=== PATIENT | male | born 1955 | race Caucasian/White ===

== ENCOUNTER → 2017-12-19 12:30 | Outpatient (CLI) | payer OTHER, SELFPAY ==
--- NOTE | 2017-12-19 12:37 | RAD_ITS ---
STUDY: X-RAY - LEFT KNEE REASON FOR EXAM: Male, 62 years old. Worsening right knee pain. TECHNIQUE: 4 view(s) of the knee. COMPARISON: None. FINDINGS: Normal visualized distal femur. Normal visualized proximal tibia and fibula. Normal proximal tibiofibular articulation. There is moderate medial compartmental arthrosis, mild lateral compartmental arthrosis and slight lateral tilt and subluxation of the patella with mild arthrosis of the patellofemoral compartment. There is a superior patellar spur. The soft tissue structures are unremarkable. RAD/Knee 4 or More Views IMPRESSION: Tricompartmental osteoarthritic changes as described. Electronically Signed: Mark Rainey MD at 17:35 EST , Service support ,
== END ==
PROVIDERS: Family Provider Family Medicine; PCP Family Medicine; Visit Provider Family Medicine
DX: M25.562 Pain in left knee (principal)
CPT/HCPCS: 73564

== ENCOUNTER → 2017-12-22 08:10 | Outpatient (CLI) | payer OTHER, SELFPAY ==
[2017-12-22 13:02] LABS: Absolute Lymphocyte Count 2.09 X10^3/ul (0.83-4.51); Absolute Neutrophil Count 5.5 X10^3/uL (2.0-7.7); Basophil# 0.02 X10^3/uL; Basophil% 0.2 % (0-1); Eosinophil# 0.22 X10^3/uL; Eosinophils% 2.6 % (0-5); Hematocrit 41.8 % (40-54); Hemoglobin 13.7 g/dl (13.0-16.5); Lymphocyte # 2.09 X10^3/ul (4.0); Lymphocyte % 24.3 % (19-41); Mean Corp Hgb Conc 32.8 g/gl (32-36); Mean Corpuscular Volume 94.6 fL (80-94); Mean Platelet Vol. 11.3 fl (6.2-12.0); Monocyte# 0.72 X10^3/uL; Monocyte% 8.4 % (0-10); Neutrophil # 5.53 X10^3/uL (2.7-7.7); Neutrophil % 64.2 % (47-70); Platelet Count 192 K/mm3 (150-450); RBC Distribution Width CV 13.5 % (11.6-14.6); RBC Distribution Width SD 44.7 fl (35.1-43.9); Red Blood Count 4.42 M/mm3 (4.6-6.2); White Blood Count 8.6 K/mm3 (4.4-11.0)
[2017-12-22 13:04] LABS: POSITIVE COUNT NO; POSITIVE DIFFERENTIAL NO; POSITIVE MORPHOLOGY NO
[2017-12-22 13:11] LABS: Anion Gap 7 (5-15); BUN 12 mg/dL (7-18); BUN/Creat Ratio 13.5 RATIO (10-20); Calcium,Total 8.5 mg/dL (8.5-10.1); Chloride 105 mmol/L (98-107); Cholesterol 138 mg/dL (200); Creatinine, Serum 0.89 mg/dL (0.70-1.30); EST Glomerular Filtration Rate 92 mL/min (>60); Est Glom Filt Rate - Afr Amer 111 mL/min (>60); Glucose 103 mg/dL (74-106); High Density Lipoprotein 40 mg/dL; Potassium 4.3 mmol/L (3.5-5.1); Sodium Level 139 mmol/L (136-145); T4 Free Direct 0.77 ng/dL (0.76-1.46); Thyroid Stim Hormone (TSH) 2.54 uIU/mL (0.358-3.74); Triglycerides 149 mg/dL; Very Low Density Lipoprotein 30 mg/dL (5-40)
[2017-12-22 13:13] LABS: Hemoglobin A1c 6.3 % (4.2-6.3)
== END ==
PROVIDERS: Family Provider Family Medicine; PCP Family Medicine; Visit Provider Family Medicine
DX: I10 Essential (primary) hypertension (principal); R73.01 Impaired fasting glucose
CPT/HCPCS: 36415; 80048; 80061; 83036; 84439; 84443; 85025

== ENCOUNTER → 2018-12-28 08:43 | Outpatient (CLI) | payer MEDICARE, OTHER, SELFPAY ==
[2018-12-28 12:37] LABS: Absolute Lymphocyte Count 2.06 X10^3/ul (0.83-4.51); Absolute Neutrophil Count 4.7 X10^3/uL (2.0-7.7); Basophil# 0.02 X10^3/uL; Basophil% 0.3 % (0-1); Eosinophil# 0.18 X10^3/uL; Eosinophils% 2.3 % (0-5); Hematocrit 43.3 % (40-54); Hemoglobin 13.9 g/dl (13.0-16.5); Lymphocyte # 2.06 X10^3/ul (4.0); Lymphocyte % 26.7 % (19-41); Mean Corp Hgb Conc 32.1 g/gl (32-36); Mean Corpuscular Hgb 30.5 pg (27.0-32.0); Mean Platelet Vol. 11.2 fl (6.2-12.0); Monocyte# 0.71 X10^3/uL; Monocyte% 9.2 % (0-10); Neutrophil # 4.74 X10^3/uL (2.7-7.7); Neutrophil % 61.4 % (47-70); Platelet Count 185 K/mm3 (150-450); RBC Distribution Width SD 50.8 fl (35.1-43.9); Red Blood Count 4.56 M/mm3 (4.6-6.2); White Blood Count 7.7 K/mm3 (4.4-11.0)
[2018-12-28 12:42] LABS: POSITIVE COUNT NO; POSITIVE DIFFERENTIAL NO; POSITIVE MORPHOLOGY NO
[2018-12-28 13:03] LABS: Anion Gap 6 (5-15); BUN 16 mg/dL (7-18); BUN/Creat Ratio 18.8 RATIO (10-20); Calcium,Total 8.1 mg/dL (8.5-10.1); Chloride 111 mmol/L (98-107); Creatinine, Serum 0.85 mg/dL (0.70-1.30); EST Glomerular Filtration Rate 96 mL/min (>60); Est Glom Filt Rate - Afr Amer 116 mL/min (>60); Glucose 105 mg/dL (74-106); Potassium 4.1 mmol/L (3.5-5.1); Sodium Level 142 mmol/L (136-145); Thyroid Stim Hormone (TSH) 2.43 uIU/mL (0.358-3.74)
== END ==
PROVIDERS: Family Provider Family Medicine; PCP Family Medicine; Visit Provider Family Medicine
DX: I10 Essential (primary) hypertension (principal); R73.01 Impaired fasting glucose
CPT/HCPCS: 36415; 80048; 84443; 85025

== ENCOUNTER → 2019-12-30 08:38 | Outpatient (CLI) | payer MEDICARE, OTHER, SELFPAY ==
[2019-12-30 12:46] LABS: Absolute Neutrophil Count 4.5 X10^3/uL (2.0-7.7); Basophil# 0.02 X10^3/uL; Basophil% 0.3 % (0-1); Eosinophils% 2.9 % (0-5); Hematocrit 44.9 % (40-54); Hemoglobin 14.3 g/dL (13.0-16.5); Lymphocyte % 24.4 % (19-41); Mean Corp Hgb Conc 31.8 g/dL (32-36); Mean Corpuscular Hgb 30.2 pg (27.0-32.0); Mean Corpuscular Volume 94.9 fL (80-94); Mean Platelet Vol. 11.5 fl (6.2-12.0); Monocyte# 0.48 X10^3/uL; Monocyte% 6.9 % (0-10); NRBC Flagged by Analyzer 0 % (0-5); Neutrophil # 4.54 X10^3/uL (2.7-7.7); Neutrophil % 65.2 % (47-70); Platelet Count 162 K/mm3 (150-450); RBC Distribution Width CV 13.5 % (11.6-14.6); RBC Distribution Width SD 47.3 fl (35.1-43.9); Red Blood Count 4.73 M/mm3 (4.6-6.2)
[2019-12-30 12:51] LABS: Vitamin D,25 Hydroxy 32.7 ng/mL
[2019-12-30 13:01] LABS: ALB/GLOB Ratio 0.9 RATIO (0.9-2.4); AST(SGOT) 24 U/L (15-37); Alanine Aminotransfer ALT/SGPT 28 U/L (16-61); Albumin, Serum 3.3 g/dL (3.2-5.0); Alkaline Phosphatase 146 U/L (45-117); Anion Gap 4 (5-15); BUN 13 mg/dL (7-18); Calcium,Total 8.8 mg/dL (8.5-10.1); Chloride 109 mmol/L (98-107); Creatinine, Serum 0.87 mg/dL (0.70-1.30); EST Glomerular Filtration Rate 94 mL/min (>60); Est Glom Filt Rate - Afr Amer 113 mL/min (>60); Globulin 3.6 g/dL (2.2-4.2); Glucose 112 mg/dL (74-106); Potassium 4.4 mmol/L (3.5-5.1); Protein, Total 6.9 g/dL (6.4-8.2); Sodium Level 141 mmol/L (136-145)
== END ==
PROVIDERS: PCP Family Medicine; Visit Provider Family Medicine
DX: K90.0 Celiac disease (principal); I10 Essential (primary) hypertension
CPT/HCPCS: 36415; 80053; 82306; 85025

== ENCOUNTER → 2023-03-22 | Outpatient (CLI) | payer BC, MEDICARE, SELFPAY ==
[2023-03-22 13:09] LABS: Absolute Lymphocyte Count 1.59 X10^3/uL (0.83-4.51); Absolute Neutrophil Count 4.8 X10^3/uL (2.0-7.7); Basophil# 0.04 X10^3/uL; Basophil% 0.6 % (0-1); Eosinophil# 0.21 X10^3/uL; Eosinophils% 2.9 % (0-5); Hematocrit 44.1 % (40-54); Lymphocyte # 1.59 X10^3/ul (0.83-4.51); Mean Corp Hgb Conc 31.7 g/dL (32-36); Mean Corpuscular Hgb 31.3 pg (27.0-32.0); Mean Corpuscular Volume 98.4 fL (80-94); Mean Platelet Vol. 12.7 fl (6.2-12.0); Monocyte% 8.3 % (0-10); NRBC Flagged by Analyzer 0 % (0-5); Neutrophil # 4.78 X10^3/uL (2.7-7.7); Neutrophil % 65.9 % (47-70); Platelet Count 139 K/mm3 (150-450); RBC Distribution Width CV 14.1 % (11.6-14.6); RBC Distribution Width SD 51.3 fl (35.1-43.9); Red Blood Count 4.48 M/mm3 (4.6-6.2); White Blood Count 7.2 K/mm3 (4.4-11.0)
[2023-03-22 14:23] LABS: ALB/GLOB Ratio 0.8 RATIO (0.9-2.4); AST(SGOT) 23 U/L (15-37); Alanine Aminotransfer ALT/SGPT 25 U/L (16-61); Albumin, Serum 3.2 g/dL (3.2-5.0); Alkaline Phosphatase 128 U/L (45-117); Anion Gap 5 (5-15); BUN 13 mg/dL (7-18); BUN/Creat Ratio 14.3 RATIO (10-20); Calcium,Total 8.8 mg/dL (8.5-10.1); Chloride 110 mmol/L (98-107); Cholesterol 129 mg/dL (200); Creatinine, Serum 0.91 mg/dL (0.70-1.30); EST Glomerular Filtration Rate 88 mL/min (>60); Est Glom Filt Rate - Afr Amer 106 mL/min (>60); GGTP 29 U/L (15-85); Globulin 4.1 g/dL (2.2-4.2); Glucose 122 mg/dL (74-106); High Density Lipoprotein 42 mg/dL; Potassium 4.2 mmol/L (3.5-5.1); Protein, Total 7.3 g/dL (6.4-8.2); Sodium Level 140 mmol/L (136-145); T4 Free Direct 0.91 ng/dL (0.76-1.46); Triglycerides 107 mg/dL; Very Low Density Lipoprotein 21 mg/dL (5-40)
[2023-03-22 14:26] LABS: Vitamin B12 437 pg/mL (211-911)
[2023-03-23 09:30] LABS: Hemoglobin A1c 5.7 % (3.8-5.6)
== END | disposition home or self-care (01) ==
LOC: MFPLAB 09:50
PROVIDERS: PCP Family Medicine; Visit Provider Family Medicine
DX: R73.09 Other abnormal glucose (principal); I10 Essential (primary) hypertension; F17.210 Nicotine dependence, cigarettes, uncomplicated; R74.8 Abnormal levels of other serum enzymes; R53.83 Other fatigue
CPT/HCPCS: 36415; 80053; 80061; 82607; 82977; 83036; 84439; 84443; 85025

== ENCOUNTER → 2023-06-06 | Outpatient (CLI) | payer MEDICARE, SELFPAY ==
[2023-06-06 15:29] LABS: Bacteria 0 SEEN /hpf (None Seen); Mucous, Urine 0 SEEN /hpf (<or=2+); Red Blood Cells-Urine 0 SEEN /hpf (0-5)
[2023-06-06 18:24] LABS: Color, Urine Yellow (Yellow); Glucose, Dipstick Normal (Normal); Ketone-Dipstick Negative (Negative); Leukocyte Esterase-Dipstick 25 /ul (Negative); Nitrite-Dipstick Negative (Negative); Occult Blood-Urine Negative /ul (Negative); Protein-Dipstick Negative (Negative); Specific Gravity, Urine 1.015 (1.002-1.030); Urine Bilirubin Dipstick Negative (Negative); Urine Clarity Clear (Clear); Urine Urobilinogen Normal (Normal)
[2023-06-06 18:35] LABS: Absolute Lymphocyte Count 2.38 X10^3/uL (0.83-4.51); Absolute Neutrophil Count 5.3 X10^3/uL (2.0-7.7); Basophil# 0.02 X10^3/uL; Basophil% 0.2 % (0-1); Eosinophil# 0.24 X10^3/uL; Eosinophils% 2.8 % (0-5); Hematocrit 45.4 % (40-54); Hemoglobin 14.9 g/dL (13.0-16.5); Lymphocyte # 2.38 X10^3/ul (0.83-4.51); Lymphocyte % 27.5 % (19-41); Mean Corp Hgb Conc 32.8 g/dL (32-36); Mean Corpuscular Hgb 31.3 pg (27.0-32.0); Mean Corpuscular Volume 95.4 fL (80-94); Mean Platelet Vol. 13.7 fl (6.2-12.0); Monocyte# 0.64 X10^3/uL; Monocyte% 7.4 % (0-10); NRBC Flagged by Analyzer 0 % (0-5); Neutrophil # 5.34 X10^3/uL (2.7-7.7); Neutrophil % 61.6 % (47-70); POSITIVE COUNT YES; Platelet Count 140 K/mm3 (150-450); RBC Distribution Width CV 13.6 % (11.6-14.6); RBC Distribution Width SD 48.5 fl (35.1-43.9); Red Blood Count 4.76 M/mm3 (4.6-6.2); White Blood Count 8.7 K/mm3 (4.4-11.0)
[2023-06-06 18:45] LABS: ALB/GLOB Ratio 0.8 RATIO (0.9-2.4); AST(SGOT) 27 U/L (15-37); Alanine Aminotransfer ALT/SGPT 29 U/L (16-61); Albumin, Serum 3.5 g/dL (3.2-5.0); Alkaline Phosphatase 145 U/L (45-117); Anion Gap 6 (5-15); BUN 13 mg/dL (7-18); BUN/Creat Ratio 13.2 RATIO (10-20); Chloride 105 mmol/L (98-107); Cholesterol 155 mg/dL (200); Creatinine, Serum 0.99 mg/dL (0.70-1.30); EST Glomerular Filtration Rate 80 mL/min (>60); Est Glom Filt Rate - Afr Amer 96 mL/min (>60); GGTP 31 U/L (15-85); Globulin 4.4 g/dL (2.2-4.2); Glucose 114 mg/dL (74-106); High Density Lipoprotein 45 mg/dL; Potassium 4.2 mmol/L (3.5-5.1); Protein, Total 7.9 g/dL (6.4-8.2); Sodium Level 137 mmol/L (136-145); Thyroid Stim Hormone (TSH) 2.13 uIU/mL (0.358-3.74); Triglycerides 162 mg/dL; Very Low Density Lipoprotein 32 mg/dL (5-40)
[2023-06-06 18:51] LABS: Hemoglobin A1c 5.5 % (3.8-5.6)
[2023-06-06 19:01] LABS: Squamous Epithelial Cells - UA 0-5 SEEN /hpf (0-5); White Blood Cells 0-5 SEEN /hpf (0-5)
== END | disposition home or self-care (01) ==
LOC: MTLAB 15:05
PROVIDERS: PCP Family Medicine; Referring Provider Family Medicine; Visit Provider Family Medicine
DX: I10 Essential (primary) hypertension (principal); R74.8 Abnormal levels of other serum enzymes; R73.02 Impaired glucose tolerance (oral)
CPT/HCPCS: 36415; 80053; 80061; 81001; 82977; 83036; 84443; 85025

== ENCOUNTER 2023-10-13 06:32 | Observation (INO) | payer MEDICARE, SELFPAY ==
[2023-10-13] VITALS (20 sets, daily range): BP systolic 94–167; BP diastolic 53–83; PULSE 55–96; RESP 14–20; TEMP 36.1–36.6; O2SAT 89–95; BMI 35.1
--- OUTSIDE RECORDS SUMMARY | 2023-10-13 06:47 | XMS RPT_ITS | CCD ---
Author Name Unknown Address [address] [place] [address] Organization [facility] Care Team Providers Care Pharmacy Scheduler Name Role Phone ZAC BLANCO Unavailable Unavailable ZAC BLANCO Unavailable Unavailable ZAC BLANCO Unavailable Unavailable Bacilio FOREMAN, Fely Jacobsen Primary Care Provider [phone] JUAN CARLOS CALVILLO Referring Unavail FELY Villa Primary Care Unavailable FELY SOL Primary Care Unavailable FELY SOL Primary Care Unavailable FELY SOL Primary Care Unavailable JUAN CARLOS CALVILLO Referring Unavail FELY Villa Primary Care Unavailable FELY SOL Primary Care Unavailable Allergies Allergy Classification Reported Allergen(s) Allergy Type Date of Onset Reaction(s) Facility (3 sources) Seasonal allergy; Translations: [SEASONAL ALLERGIES] Propensity to adverse reactions (disorder) 3 Intolerance [facility] Other [facility] Medications Current Medications Medication Drug Class(es) Dates Sig (Normalized) Sig (Original) polymyxin b 02820 unt/ml / trimethoprim 1 mg/ml ophthalmic solution (1 source) Dihydrofolate Reductase Inhibitor Antibacterial, Polymyxin-class Antibacterial Start: 04-27-2022 End: 05-04-2022 take 1 drop(s) into the eye(s) every four hours trimethoprim-malinda ymyxin (POLYTRIM) 10,000 unit- 1 mg/mL ophthalmic solution Use 1 Drop in the right eye every 4 hours for 7 days. 10 mL 0 04/27/2022 05/04/2022 Active Completed/Discontinued Medications Medication Drug Class(es) Dates Sig (Normalized) Sig (Original) cetirizine hydrochloride 10 mg oral capsule (1 source) Histamine-1 Receptor Antagonist Cetirizine (ZYRTEC) 10 mg cap Take by mouth. 0 Active Problems Active Problems Problem Classification Problem Date Documented Da te Episodic/Chronic Diverticulosis and diverticulitis (1 source) Diverticulosis of colon; Translations: [Diverticulosis of large intestine without perforation or abscess without bleeding] Onset: 04-28-2010 04-28-2010 Chronic Essential hypertension (1 source) Hypertensive disorder; Translations: [Essential (primary) hypertension] Onset: 12-30-2009 12-30-2009 Chronic Other aftercare (3 sources) Other terminal operations manager (current) drug therapy; Translations: [Other fci (current) drug therapy] Onset: 04-27-2023 Episodic Other eye disorders (1 source) Pain in eye; Translations: [Ocular pain, right eye] Episodic Other gastrointestinal disorders (1 source) Dysphagia, unspecified; Translations: [Dysphagia, unspecified] Onset: 01-24-2018 Episodic Other inflammatory condition of skin (1 source) Dermatitis herpetiformis; Translations: [Dermatitis herpetiformis] Onset: 04-27-2023 Chronic Other nutritional; endocrine; and metabolic disorders (1 source) Obesity; Translations: [Obesity, unspecified] Onset: 12-30-2009 12-30-2009 Chronic Superficial injury; contusion (1 source) Abrasion of cornea of right eye; Translations: [Injury of conjunctiva and corneal abrasion without foreign body, right eye, initial encounter] Episodic Unclassified (1 source) Unknown / UNK(Unknown) Onset: 01-24-2018 Past or Other Problems Problem Classification Problem Date Documented Da te Episodic/Chronic Allergic reactions (1 source) Solar degeneration; Translations: [Other skin changes due to chronic exposure to nonionizing radiation] Onset: 03-18-2010 03-18-2010 Episodic Melanomas of skin (1 source) H/O Malignant melanoma; Translations: [Personal history of malignant melanoma of skin] Onset: 05-16-2017 05-16-2017 Episodic Neoplasms of unspecified nature or uncertain behavior (1 source) Neoplasm of uncertain behavior of skin; Translations: [Neoplasm of uncertain behavior of skin] Onset: 03-18-2010 03-18-2010 Episodic Other and unspecified benign neoplasm (1 source) Benign neoplasm of colon; Translations: [Benign neoplasm of colon, unspecified] Onset: 04-28-2010 04-28-2010 Episodic Other non-epithelial cancer of skin (2 sources) History of malignant basal cell neoplasm of skin; Translations: [Personal history of other malignant neoplasm of skin] Onset: 12-30-2009 12-30-2009 Episodic Other screening for suspected conditions (not mental disorders or infectious disease) (1 source) Patient encounter status; Translations: [Encounter for screening for malignant neoplasm of colon] Onset: 04-28-2010 04-28-2010 Episodic Results Test Name Value Interpretation Reference Range Facil ity Vital Signs Date Time Vital Sign Value Performing Clinician Javy lofton 04-27-2022 09:04-0400 Body temperature 97.9 [degF] Erin Fernandez SMELTER LINER.PRODUCT HANDLER Work Phone: [facility] 04-27-2022 09:04-0400 Body weight 130.64 kg Erin Fernandez SMELTER LINER.PRODUCT HANDLER Work Phone: [facility] 04-27-2022 09:04-0400 Diastolic blood pressure 80 mm[Hg] Erin Fernandez SMELTER LINER.PRODUCT HANDLER Work Phone: [facility] 04-27-2022 09:04-0400 Heart rate 66 /min Erin Fernandez SMELTER LINER.PRODUCT HANDLER Work Phone: [facility] 04-27-2022 09:04-0400 Respiratory rate 18 /min Erin Fernandez SMELTER LINER.PRODUCT HANDLER Work Phone: [facility] 04-27-2022 09:04-0400 SaO2% (BldA) [Mass fraction] 95 % Erin Fernandez SMELTER LINER.PRODUCT HANDLER Work Phone: [facility] 04-27-2022 09:04-0400 Systolic blood pressure 132 mm[Hg] Erin Fernandez SMELTER LINER.PRODUCT HANDLER Work Phone: [facility] Encounters Encounter Date Encounter Type Care Provider Facility Start: 09-15-2023 End: 09-16-2023 ambulatory FELY SOL Facility:[facility] Start: 08-16-2023 End: 08-17-2023 ambulatory JUAN CARLOS CALVILLO Facility:[facility] Start: 07-26-2023 End: 07-27-2023 ambulatory FELY SOL Facility:[facility] Start: 05-17-2023 End: 05-18-2023 ambulatory JUAN CARLOS CALVILLO Facility:[facility] Start: 04-27-2023 End: 04-28-2023 ambulatory FELY SOL Facility:[facility] Start: 01-24-2023 End: 01-25-2023 ambulatory FELY SOL Facility:[facility] Start: 04-27-2022 End: 04-27-2022 Patient encounter procedure Erin Jim SMELTER LINER.PRODUCT HANDLER Work Phone: [facility] Procedures Date Procedure Procedure Detail Performing Clinician Start: 11-08-2017 Colonoscopy Erin Didier castillo SMELTER [employer]ER.PRODUCT HANDLER Work Phone: Start: 10-23-2017 Adult depression scr eening assessment Erin Fernandez SMELTER LINER.PRODUCT HANDLER Work Phone: Plan of Treatment Date Care Activity Detail Author Start: 12-23-2023 DIABETES SCREEN DIABETES SCREEN [facility] Start: 11-08-2022 Colonoscopy COLONOSCOPY [facility] Start: 11-08-2022 COLORECTAL CANCER SCREENING COLORECTAL CANCER SCREENING [facility] Start: 06-16-2022 Influenza vaccination INFLUENZA (#1) [facility] Start: 01-27-2022 LIPID SCREEN LIPID SCREEN [facility] Start: 12-14-2021 COVID-19 VACCINE (4 - Booster for Moderna series) COVID-19 VACCINE (4 - Booster for Moderna series) [facility] Start: 10-16-2021 ADVANCE DIRECTIVE DISCUSSION ADVANCE DIRECTIVE DISCUSSION [facility] Start: 10-23-2018 Adult depression scr eening assessment DEPRESSION SCREENING [facility] Start: 10-23-2018 ANNUAL PCP TEAM CENTRAL PROCESSING TECH AMIRA DISEASE VISIT ANNUAL PCP TEAM CHRONIC DISEASE VISIT [facility] Start: 12-05-2017 PROSTATE CANCER SCRE ENING DISCUSSION PROSTATE CANCER SCREENING DISCUSSION [facility] Start: 02-03-2011 Urine microalbumin profile DTAP,TDAP ,TD (1 - Tdap) [facility] Start: 2003 SHINGRIX VACCINE (1 of 2) SHINGRIX V ACCINE (1 of 2) [facility] Start: 1998 COLOGUARD (FIT-DNA) COLOGUARD (FIT-D NA) [facility] Start: [address] COLONOGRAPHY [facility] Start: 1998 FECAL OCCULT BLOOD FECAL OCCULT BLOO D [facility] Start: 1998 SIGMOIDOSCOPY SIGMOIDOSCOPY [facility] Start: 1971 BP CONTROLLED (<130/80) BP CONTROLLE D (<130/80) [facility] Start: 1959 PNEUMOCOCCAL: 65+ (1 - PCV) PNEUMOCOCCAL: 65+ (1 - PCV) [facility] Start: 1953 ABDOMINAL AORTIC ANE URYSM SCREENING ABDOMINAL AORTIC ANEURYSM SCREENING [facility] Immunizations Immunization Date Immunization Notes Care Provider Geeta ferrera 08-23-2016 influenza, injectabl e, quadrivalent, contains preservative Erin Fernandez SMELTER LINER.PRODUCT HANDLER Work Phone: [facility] 02-02-2011 tetanus and diphther ia toxoids, not adsorbed, for adult use Erin Fernandez SMELTER LINER.PRODUCT HANDLER Work Phone: [facility] 07-16-2010 influenza virus vacc ine, whole virus Erin Fernandez SMELTER LINER.PRODUCT HANDLER Work Phone: [facility] Payers Date Payer Category Payer Unknown ANTHEM BLUE [facility] AN[employer]M [employer] O [id number] 2021-Present [phone] [address] [place] [address] O [id number] 2021 Unknown [id number] Social History Date Type Detail Facility Start: 06-04-2021 Tobacco smoking stat us NCIS Smokes tobacco daily [facility] Work Phone: History of tobacco use Cigarette Smoker [facility] Work Phone: Start: 06-04-2021 Cigarettes smoked current (pack per day) - Reported 1 [facility] Start: 06-04-2021 Tobacco use and exposure Smokeless tobacco non-user [facility] Work Phone: Start: 04-27-2022 Alcohol intake Current drinke r of alcohol (finding) [facility] Start: 10-19-2011 History SDOH Alcohol Comment rare [facility] Start: 1955 Sex Assigned At Not on file [facility] Start: 04-17-2022 End: 04-27-2022 Exposure to SARS-CoV-2 (event) Not sure [facility] Work Phone: History of Present illness Narrative 04-27-2022 Erin Fernandez APRN.PRODUCT HANDLER - 04/27/2022 9:20 AM EDT Note Date & Type Note Facility 04-27-2022 History of Presen t illness Narrative Images from the original note were not included. This note was created using Revolverriter. Subjective Jasper Snell is a 66 year old male. 66 year old male with PMH HTN and obesity presents with complaints of right eye irration. Acute onset today upon awakening. +feelings of FB States that he has been scraping off paint for the past 2 days. He attempted to rinse the area out, was pulling at my eyelids which is why they are all swollen now Denies blurred vision, double vision or loss of vision Denies floaters, halos. Denies drainage Denies N/V Denies accompanying URI sx. Denies fever or chills. Wears glasses, but not corrective lens. Dr. Avila is his opthalmology, closed today. The history is provided by the patient. No language pathologist was used. Eye Problem This is a new problem. The current episode started today. The problem occurs constantly. The problem has been unchanged. Pertinent negatives include no abdominal pain, anorexia, arthralgias, change in bowel habit, chest pain, chills, congestion, coughing, diaphoresis, fatigue, fever, headaches, joint swelling, myalgias, nausea, neck pain, numbness, rash, sore throat, swollen glands, urinary symptoms, vertigo, visual change, vomiting or weakness. Nothing aggravates the symptoms. Treatments tried: flushing eye out The treatment provided no relief. PAST MEDICAL HISTORY Diagnosis Date Benign neoplasm of colon Benign neoplasm of colon Diverticulosis of colon (without mention of hemorrhage) Generalized osteoarthrosis, unspecified site Hypertension Meningitis 2011 Other malignant neoplasm of skin, site unspecified LEFT JEHOVAH'S WITNESS Personal history of colonic polyps PAST SURGICAL HISTORY Procedure Laterality Date COLONOSCOPY FLX DX W/COLLJ SPEC WHEN PFRMD 11/08/2017 Colonoscopy COLONOSCOPY W/BIOPSY SINGLE/MULTIPLE 05/04/11 COLSC FLX W/RMVL OF TUMOR POLYP LESION SNARE TQ 04/28/10 PAST SURGICAL HISTORY OF appendectomy PAST SURGICAL HISTORY OF left knee surgery ALLERGIES Seasonal Allergies MEDICATIONS Clobetasol Propionate 0.05 % lotn APPLY TO AFFECTED SKIN TRUNK ARMS TWICE A DAY 2 WEEKS THEN TWICE WEEKLY NEEDED FOR FLARE Ibuprofen 200 mg cap Take by mouth. Cetirizine (ZYRTEC) 10 mg cap Take by mouth. fluticasone (FLONASE) 50 mcg/actuation nasal spray Use 1 [place] in each nostril once daily. metoprolol tartrate, short acting, (LOPRESSOR) 50 mg tablet Take 1 tablet by mouth twice daily. dapsone 25 mg tablet trimethoprim-polymyxin (POLYTRIM) 10,000 unit- 1 mg/mL ophthalmic solution Use 1 Drop in the right eye every 4 hours for 7 days. meloxicam (MOBIC) 15 mg tablet Take 15 mg by mouth once daily. FAMILY HISTORY Problem Relation Age of Onset Thyroid Mother Arthritis Father OSTEOARTHRITIS Cancer Sister SKIN- melanoma Psychiatry Paternal Grandfather Social History Tobacco Use Smoking status: Current Every Day Smoker Packs/day: 1.00 Types: Cigarettes Smokeless tobacco: Never Used Substance Use Topics Alcohol use: Yes Comment: rare Drug use: No Review of Systems Constitutional: Negative for chills, diaphoresis, fatigue and fever. HENT: Negative for congestion, ear pain, sinus pressure, sinus pain and sore throat. Eyes: Positive for pain and redness. Negative for photophobia, discharge, itching and visual disturbance. Respiratory: Negative for apnea, cough, chest tightness and shortness of breath. Cardiovascular: Negative for chest pain and leg swelling. Gastrointestinal: Negative for abdominal pain, anorexia, change in bowel habit, nausea and vomiting. Musculoskeletal: Negative for arthralgias, joint swelling, myalgias and neck pain. Skin: Negative for rash. Allergic/Immunologic: Negative for environmental allergies, food allergies and immunocompromised state. Neurological: Negative for dizziness, vertigo, facial asymmetry, weakness, numbness and headaches. Hematological: Negative for adenopathy. Does not bruise/bleed easily. Psychiatric/Behavioral: Negative for agitation and behavioral problems. Objective BP 132/80 Pulse 66 Temp 36.6 C (97.9 F) Resp 18 Wt 130.6 kg (288 lb) SpO2 95% BMI 36.00 kg/m Physical Exam Vitals and nursing note reviewed. Constitutional: General: He is not in acute distress. Appearance: Normal appearance. He is not ill-appearing, toxic-appearing or diaphoretic. HENT: Head: Normocephalic and atraumatic. Right Ear: External ear normal. Left Ear: External ear normal. Nose: Nose normal. No congestion or rhinorrhea. Mouth/Throat: Mouth: Mucous membranes are moist. Pharynx: Oropharynx is clear. No oropharyngeal exudate or posterior oropharyngeal erythema. Eyes: General: Lids are everted, no foreign bodies appreciated. Vision grossly intact. Gaze aligned appropriately. Right eye: No foreign body, discharge or hordeolum. Left eye: No foreign body, discharge or hordeolum. Extraocular Movements: Extraocular movements intact. Right eye: Normal extraocular motion and no nystagmus. Left eye: Normal extraocular motion and no nystagmus. Conjunctiva/sclera: Right eye: Right conjunctiva is not injected. No chemosis, exudate or hemorrhage. Left eye: Left conjunctiva is injected. No chemosis, exudate or hemorrhage. Pupils: Pupils are equal, round, and reactive to light. Pupils are equal. Right eye: Pupil is round, reactive and not sluggish. Corneal abrasion and fluorescein uptake present. Pamela exam negative. Left eye: Pupil is round, reactive and not sluggish. No corneal abrasion or fluorescein uptake. Pamela exam negative. Funduscopic exam: Right eye: Red reflex present. Left eye: Red reflex present. Comments: Right upper eyelid with mild swelling noted. Cardiovascular: Rate and Rhythm: Normal rate and regular rhythm. Pulses: Normal pulses. Heart sounds: Normal heart sounds. No murmur heard. No friction rub. No gallop. Pulmonary: Effort: Pulmonary effort is normal. No respiratory distress. Breath sounds: Normal breath sounds. No stridor. No wheezing, rhonchi or rales. Chest: Chest wall: No tenderness. Abdominal: General: Abdomen is flat. There is no distension. Palpations: Abdomen is soft. There is no mass. Tenderness: There is no abdominal tenderness. There is no guarding or rebound. Hernia: No hernia is present. Musculoskeletal: General: No swelling, tenderness, deformity or signs of injury. Normal range of motion. Cervical back: Normal range of motion and neck supple. No rigidity or tenderness. Right lower leg: No edema. Left lower leg: No edema. Lymphadenopathy: Cervical: No cervical adenopathy. Skin: General: Skin is warm and dry. Capillary Refill: Capillary refill takes less than 2 seconds. Coloration: Skin is not jaundiced or pale. Findings: No bruising, lesion or rash. Neurological: General: No focal deficit present. Mental Status: He is alert and oriented to person, place, and time. Cranial Nerves: No cranial nerve deficit. Sensory: No sensory deficit. Motor: No weakness. Coordination: Coordination normal. Gait: Gait normal. Deep Tendon Reflexes: Reflexes normal. Psychiatric: Mood and Affect: Mood normal. Behavior: Behavior normal. Thought Content: Thought content normal. Assessment and Plan ASSESSMENT/PLAN: 1. Abrasion of right cornea, initial encounter - ICD9: 918.1, ICD10: S05.01XA (primary diagnosis) X 2 Noted at 12 and 05/[facility] No red flags Denies he wears contacts RX Polytrim Dr. Avila is his eye doctor, closed today He will call tomorrow for recheck in next 24 to 48 hours Discussed red flags 2. Acute right eye pain - ICD9: 379.91, ICD10: H57.11 Related to corneal abrasion RX Polytrim Erin Fernandez APRN.KASIA documented in this encounter [facility] Instructions 04-27-2022 Patient Instructions Note Date & Type Note Facility 04-27-2022 Instructions Erin Fernandez APRN.CNP - 04/27/2022 9:19 AM EDT CORNEAL ABRASION GENERAL INFORMATION: A corneal abrasion is a scratch to the clear layer that covers the front part of the eye. Small scratches usually heal within 1 or 2 days. Deeper or larger scratches may take about a week. INSTRUCTIONS: 1. Keep your eye patch on for 24-48 hours or until your follow-up visit. This will make your eye less painful and will help the abrasion heal faster. Do NOT loosen or remove the patch. If the tape comes loose, retape it just as it was before. 2. Do not drive or operate machinery while your eye is patched. Your ability to imagery intelligence distances is impaired. In some states, driving with one eye patched is against the law. 3. If you usually wear contact lenses, do not wear them until approved by your follow-up doctor. 4. You should rest your eyes. Avoid reading, watching TV, and other activities that require excessive use of your eyes. 5. If you had a foreign body in your eye removed, and you are at risk of getting another one because you still perform the activity that caused it in the first place, wear protective eyewear such as goggles or glasses. 6. If your doctor prescribed drops or ointment for your eye, use them as instructed. CONTACT YOUR DOCTOR IF: 1. Your eye pain gets worse. 2. You have problems with your eye patch. documented in this encounter [facility] History of Past illness Narrative 06-30-2010 Note Date & Type Note Facility documented as of this encounter (statuses as of 04/27/2022) [facility] Evaluation note Note Date & Type Note Facility documented in this encounter [facility] Summary Purpose Family History No Family History Records FoundNo Family History Records FoundNo Family History Records Found Advance Directives No Advanced Directives Records FoundDocuments on File Type Date Recorded Patient Adjuster And Inspector Expl anation Advance Directive(s) 11/08/2017 12:35 PM Additional Source Comments (unrecognized sect ion and content) No Status Records FoundNo Status Records FoundNo Status Records Found INFORMATION SOURCE (unrecogn ized section and content) DATE CREATED AUTHOR AUTHOR'S ORGANIZ ATION 10/19/2019 [facility] ([place]) DATE CREATED AUTHOR AUTHOR'S ORGANIZ ATION 09/18/2023 [facility] Source Comments (unrecognize d section and content) In the event this informatio n is protected by the Federal Confidentiality of Alcohol and Drug Abuse Patient Records regulations: The Federal rules restrict any use of the information to criminally investigate or prosecute any alcohol or drug abuse patient.[facility] Reason for Visit (unrecogniz ed section and content) Care Teams (unrecognized sec tion and content) FOR RECORDS PERTAINING TO PATIENTS WHO ARE OR HAVE BEEN ENROLLED IN A CHEMICAL DEPENDENCY/SUBSTANCEABUSE PROGRAM, SOME INFORMATION MAY BE OMITTED. This clinical summary was aggregated from multiple sources. Caution should be exercised in using it in the provision of clinical care. This summary normalizes information from multiple sources, and as a consequence, information in this document may materially change the coding, format and clinical context of patient data. In addition, data may be omitted in some cases. CLINICAL DECISIONS SHOULD BE BASED ON THE PRIMARY CLINICAL RECORDS. [facility] [facility]. provides no warranty or guarantee of the accuracy or completeness of information in this document.
--- NOTE | 2023-10-13 07:20 | CT_ITS ---
STUDY: CT ABDOMEN AND PELVIS WITH CONTRAST - URINARY TRACT REASON FOR EXAM: Male, 68 years old. Abdominal pain RADIATION DOSAGE (If Supplied By Facility): CTDIvol = ( 20.60 ) mGy, DLP = ( 1856.30 ) mGycm TECHNIQUE: IV 100mL Isovue-300 was administered. Transaxial images were obtained from the dome of the diaphragm to the symphysis pubis subsequent to intravenous contrast administration. Multiplanar coronal and sagittal images were reformatted. Individualized Dose Optimization Techniques Were Used For This CT. COMPARISON: No relevant prior comparison study available FINDINGS: There is dependent atelectasis within the lower lobes. The visualized portions of the heart are within normal limits. Normal liver. There are gallstones within the gallbladder. There is pericholecystic fluid. Normal spleen. Normal pancreas. Normal bilateral adrenal glands. Normal visualized stomach. Normal small intestine. There are multiple colonic diverticula consistent with diverticulosis. There is non-visualization of the appendix. There is diffuse atherosclerotic calcification of the abdominal aorta, without a demonstrated aneurysm. No retroperitoneal adenopathy. There are bilateral renal cysts. Normal urinary bladder. Normal abdominal wall. There are diffuse degenerative changes of the visualized lumbar spine. CT/Abdomen/Pelvis W IV Cont ONLY IMPRESSION: Cholelithiasis associated with pericholecystic fluid, recommend right upper quadrant ultrasound for further characterization, cannot exclude cholecystitis. Atherosclerosis. Electronically Signed: Uzma Archer MD at 9:08 EST ,
--- NOTE | 2023-10-13 07:21 | ED.VIS.GI ---
HPI HPI - GI History of Present Illness Chief Complaint: Abd Pain Informant: patient Narrative Narrative: Patient presents with epigastric abdominal pain. Triage note says this has been going on 3 days. Patient states this just started about 2 AM. It did happen about 2 or 3 weeks ago. It lasted for for 5 or 6 hours. It occurred in the middle the night again. He was not seen at that time. This seems to be the same. He was woken up about 2 AM. He states he has pain and he points to the epigastric area. This is clearly in the abdomen not in the chest. He states the pain never radiated into his chest. It does radiate down to the lower abdomen but it is clearly epigastric. He had a little nausea this morning but that is now gone. He has never vomited. His stools might be a little bit soft but no diarrhea constipation blood or black or other change. He has had no change in his medications. Only abdominal surgery is prior appendectomy at about 16 years of age. He has never had gallbladder problems but his sister had her gallbladder out in her 40s. Last night he ate chili for dinner. It seemed to taste good when he ate it. He states a shell machine operator diagnosed celiac disease but he has never had any symptoms that he knows are related to it. [facility] Medical History Celiac disease Hypertension Home Medications dapsone 25 mg tablet 25 mg PO DAILY 10/13/23 [History Last Taken Unknown] metoprolol tartrate 50 mg tablet 50 mg PO BID 10/13/23 [History Last Taken Unknown] Allergy/AdvReac Type Severity Reaction Status Date / Time No Known Allergies Allergy Verified 10/13/23 06:32 Surgical History History of left knee replacement Hx of appendectomy Social History Smoking Status: Current every day smoker tobacco type: cigarettes ROS ROS ED ROS Narrative A complete review of systems was performed and is negative except as documented in the history of present illness. Some specific details below. Constitutional: No recent fevers or chills. He felt fine when he went to bed. EYE: Color change. ENT: No difficulty swallowing. No swelling. No pain. No GERD symptoms or bad taste in the mouth. No history of GERD. CV: No chest pain or palpitations. No radiation into the chest. Respiratory: No dyspnea. No hemoptysis. No difficulty taking breaths. GI: Please see history of present illness. : No frequency dysuria or hematuria. Musculoskeletal: No recent trauma. No pains. Skin: No rash. Nondiaphoretic. Neuro: No weakness or numbness. Endocrine: No polyuria or polydipsia. EXAM Physical Exam Narrative Exam Narrative: CONSTITUTIONAL: Patient is nontoxic in appearance. The patient looks comfortable. HEENT: No notable trauma. Mucous membranes moist. EYES: No conjunctival injection. No icterus. CARDIOVASCULAR: Regular rate. Regular rhythm. No notable murmur. No JVD. RESPIRATORY: No respiratory distress. Breathing is unlabored. No wheezes. No rhonchi. No rales. No pain with a deep breath. GASTROINTESTINAL: Not distended. Bowel sounds are normal. He does have some tenderness mostly in the epigastric area. He does have some in the right upper quadrant but not as much. None on the left side. There is no rebound or guarding. GENITOURINARY: No tenderness over the bladder. No CVA tenderness. MUSCULOSKELETAL: Atraumatic. No peripheral edema. No tenderness. NEUROLOGICAL: Patient is alert and appropriate. No focal deficit noted. SKIN: No noted rashes. No diaphoresis. Not jaundiced. PSYCHIATRIC: Patient is calm. Mood is appropriate. Const Vital Signs: 10/13/23 06:32 10/13/23 09:17 Temperature 97.5 F L Temperature Source Temporal Pulse Rate 60 55 L Respiratory Rate 20 H 20 H Blood Pressure 167/76 H 153/72 H Blood Pressure Mean 106 99 Pulse Ox 93 94 Oxygen Delivery Method Room Air Room Air MDM MDM MDM Narrative Medical decision making narrative: My independent interpretation of the patient's CT of the abdomen shows thickened gallbladder with possibly some fluid and a large gallstone near the base. Final reading is similar. Patient's ultrasound is also consistent with acute cholecystitis. Patient seen he sees overall normal his white count. Patient's electrolytes are generally unremarkable. Glucose is mildly up at 160. Liver function test shows higher alkaline phosphatase than normal but other transaminases are normal. Patient's lipase is normal. Patient's been given a couple doses of pain meds and meds for nausea. I rechecked him after the above studies. He still having some pain and tenderness. I discussed the case with Dr. Banegas who saw the patient in the emergency department and he will be admitted. Lab Data Attestation: I reviewed the patient's lab results. Labs: Laboratory Results - last 24 hr 10/13/23 07:33 WBC 10.0 RBC 4.67 Hgb 14.6 Hct 44.6 MCV 95.5 H MCH 31.3 MCHC 32.7 RDW Std Deviation 46.7 H RDW Coeff of Shawn 13.3 Plt Count 123 L MPV 12.9 H Immature Gran % (Auto) 0.300 Neut % (Auto) 81.5 H Lymph % (Auto) 12.8 L Allen % (Auto) 4.4 Eos % (Auto) 0.8 Baso % (Auto) 0.2 Absolute Neuts (auto) 8.1 H Absolute Lymphs (auto) 1.28 Nucleated RBC % 0 Sodium 136 Potassium 4.0 Chloride 105 Carbon Dioxide 28.0 Anion Gap 3 L BUN 14 Creatinine 1.10 Estim Creat Clear Calc 74.68 Est GFR (MDRD) Af Amer 85 Est GFR (MDRD) Non-Af 70 BUN/Creatinine Ratio 12.7 Glucose 160 H Calcium 9.0 Total Bilirubin 0.30 AST 23 ALT 29 Alkaline Phosphatase 186 H Total Protein 7.2 Albumin 3.2 Globulin 4.0 Albumin/Globulin Ratio 0.8 L Lipase 25 Radiography Diagnostic Testing: Clinical Impression(s) from Imaging Studies Abdomen/Pelvis CT 10/13/23 07:20 IMPRESSION: Cholelithiasis associated with pericholecystic fluid, recommend right upper quadrant ultrasound for further characterization, cannot exclude cholecystitis. Atherosclerosis. Electronically Signed: Uzma Archer MD at 9:08 EST Reading Location ID and State: [facility] / [place] Tel , Service support , Gallbladder Ultrasound 10/13/23 09:11 IMPRESSION: Cholelithiasis associated with gallbladder wall thickening and a reported positive sonographic Kelley''s sign suggestive of cholecystitis. Nonvisualization of the pancreas secondary to overlying bowel gas. Electronically Signed: Uzma Archer MD at 10:12 EST , EKG Initial EKG: Comments: My independent interpretation of the patient's EKG shows sinus rhythm with mild bradycardic rate at 49. No ventricular ectopy. No acute ST elevation or depression. Slight sinus arrhythmia. [place] interval is just within normal limits. QRS duration and QTc are normal. The EKG looks similar to 1 from October 2010 other than his heart rate was 65 at the time. Management Discussion w/another healthcare provider: [facility] Nurse Discharge Plan Triage Chief Complaint: Abd Pain ED Provider: Dashawn West Dx/Rx/DC Orders Clinical Impression: Hyperglycemia, unspecified, Nausea, Acute cholecystitis Prescriptions: No Action metoprolol tartrate 50 mg tablet 50 mg PO BID Patient Comments: take 1 tablet by mouth twice a day dapsone 25 mg tablet 25 mg PO DAILY Primary Care Provider: Eusebio Sage Referrals: Eusebio Sage MD [Primary Care Provider] - Disposition Disposition: Acute Care Hospital [facility]
[2023-10-13] MEDS: 0.9% Normal Saline (1000mL) 500 ML 1000 ML IV (07:30)
[2023-10-13] MEDS: Ondansetron 4 MG/2 ML Vial IV (07:30)
[2023-10-13] MEDS: Morphine 4 MG/ML Syringe IV ×3 (07:30→11:48)
[2023-10-13 07:43] LABS: Absolute Lymphocyte Count 1.28 X10^3/uL (0.83-4.51); Absolute Neutrophil Count 8.1 X10^3/uL (2.0-7.7); Basophil# 0.02 X10^3/uL; Basophil% 0.2 % (0-1); Eosinophil# 0.08 X10^3/uL; Eosinophils% 0.8 % (0-5); Hematocrit 44.6 % (40-54); Hemoglobin 14.6 g/dL (13.0-16.5); Lymphocyte # 1.28 X10^3/ul (0.83-4.51); Lymphocyte % 12.8 % (19-41); Mean Corp Hgb Conc 32.7 g/dL (32-36); Mean Corpuscular Hgb 31.3 pg (27.0-32.0); Mean Corpuscular Volume 95.5 fL (80-94); Mean Platelet Vol. 12.9 fl (6.2-12.0); Monocyte# 0.44 X10^3/uL; Monocyte% 4.4 % (0-10); NRBC Flagged by Analyzer 0 % (0-5); Neutrophil # 8.12 X10^3/uL (2.7-7.7); Neutrophil % 81.5 % (47-70); Platelet Count 123 K/mm3 (150-450); RBC Distribution Width CV 13.3 % (11.6-14.6); RBC Distribution Width SD 46.7 fl (35.1-43.9); Red Blood Count 4.67 M/mm3 (4.6-6.2)
[2023-10-13 08:08] LABS: ALB/GLOB Ratio 0.8 RATIO (0.9-2.4); AST(SGOT) 23 U/L (15-37); Alanine Aminotransfer ALT/SGPT 29 U/L (16-61); Albumin, Serum 3.2 g/dL (3.2-5.0); Alkaline Phosphatase 186 U/L (45-117); Anion Gap 3 (5-15); BUN 14 mg/dL (7-18); BUN/Creat Ratio 12.7 RATIO (10-20); Chloride 105 mmol/L (98-107); EST Glomerular Filtration Rate 70 mL/min (>60); Est Glom Filt Rate - Afr Amer 85 mL/min (>60); Estimated Creatinine Clearance 74.68 ml/min; Glucose 160 mg/dL (74-106); Lipase 25 U/L (13-75); Protein, Total 7.2 g/dL (6.4-8.2); Sodium Level 136 mmol/L (136-145)
--- NOTE | 2023-10-13 09:11 | US_ITS ---
INDICATION: PAIN EXAMINATION: Ultrasound US Abdomen Limited (quadrant) TECHNIQUE: Haley scale and color doppler imaging was performed of the right upper quadrant. COMPARISON: CT dated October 13, 2023 FINDINGS: LIVER: There is normal echotexture. No focal hepatic lesion. There is no free fluid. GALLBLADDER AND BILIARY TREE: There are gallstones within the gallbladder. There is gallbladder wall thickening. No pericholecystic fluid is visualized. The proximal common bile duct measures 5.8 mm, which is within normal limits for the patient''s age. Songraphic Kelley''s sign: Positive. PANCREAS: There is nonvisualization of the pancreas secondary to overlying bowel gas. RIGHT KIDNEY: The right kidney measures 11.8 cm in length and is within normal limits. US/Gallbladder IMPRESSION: Cholelithiasis associated with gallbladder wall thickening and a reported positive sonographic Kelley''s sign suggestive of cholecystitis. Nonvisualization of the pancreas secondary to overlying bowel gas. Electronically Signed: Uzma Archer MD at 10:12 EST ,
--- NOTE | 2023-10-13 10:50 | NURSING ---
MED SURG [facility] ACUTE CHOLECYSTITIS
--- NOTE | 2023-10-13 10:55 | PCM.HP.STD ---
HPI - General HPI Narrative CARLOS LAFLEUR, is a 68 M who presents with abdominal pain in the epigastric region. The patient reports that started this morning. He says he had an episode that was similar a few weeks ago. He also says he is having some chills. Denies nausea or vomiting. [facility] Medical History Celiac disease Hypertension Home Medications dapsone 25 mg tablet 25 mg PO DAILY 10/13/23 [History Last Taken Unknown] metoprolol tartrate 50 mg tablet 50 mg PO BID 10/13/23 [History Last Taken Unknown] Allergy/AdvReac Type Severity Reaction Status Date / Time No Known Allergies Allergy Verified 10/13/23 06:32 Surgical History History of left knee replacement Hx of appendectomy Social History Smoking Status: Current every day smoker tobacco type: cigarettes ROS Constitutional Constitutional: Reports chills; Denies anorexia, fatigue or fever(s) Eyes Eyes: Denies blurry vision ENT HEENT: Denies abnormal hearing Cardiovascular Cardiovascular: Denies chest pain Respiratory/Chest Respiratory/Chest: Denies cough or dyspnea Gastrointestinal Gastrointestinal: Reports abdominal pain; Denies change in bowel habits, nausea or vomiting Genitourinary Genitourinary: Denies change in urinary stream Musculoskeletal Musculoskeletal: Denies abnormal gait Integumentary Integumentary: Denies jaundice Neurologic Neurologic: Denies abnormal gait Psychiatric Psychiatric: Denies depression Endocrine Endocrinology: Denies flushing Hematologic/Lymphatic Hematologic/Lymphatic: Reports easy bleeding Vital Signs Vital Signs Vital Signs: 10/13/23 06:32 10/13/23 09:17 Temperature 97.5 F L Temperature Source Temporal Pulse Rate 60 55 L Respiratory Rate 20 H 20 H Blood Pressure 167/76 H 153/72 H Blood Pressure Mean 106 99 Pulse Ox 93 94 Oxygen Delivery Method Room Air Room Air Weight Weight: 280 lb 13.903 oz Body Mass Index (BMI) 35.1 Physical Exam Const oriented x3 and no apparent distress Resp normal respiratory effort Cardio regular rate and regular rhythm GI soft to palpation Palpation: tender epigastric Results Lab / Micro Data 10/13/23 07:33 10/13/23 07:33 Labs: Laboratory Results - last 24 hr 10/13/23 07:33: WBC 10.0, RBC 4.67, Hgb 14.6, Hct 44.6, MCV 95.5 H, MCH 31.3, MCHC 32.7, RDW Std Deviation 46.7 H, RDW Coeff of Shawn 13.3, Plt Count 123 L, MPV 12.9 H, Immature Gran % (Auto) 0.300, Neut % (Auto) 81.5 H, Lymph % (Auto) 12.8 L, Payne % (Auto) 4.4, Eos % (Auto) 0.8, Baso % (Auto) 0.2, Absolute Neuts (auto) 8.1 H, Absolute Lymphs (auto) 1.28, Nucleated RBC % 0, Sodium 136, Potassium 4.0, Chloride 105, Carbon Dioxide 28.0, Anion Gap 3 L, BUN 14, Creatinine 1.10, Estim Creat Clear Calc 74.68, Est GFR (MDRD) Af Amer 85, Est GFR (MDRD) Non-Af 70, BUN/Creatinine Ratio 12.7, Glucose 160 H, Calcium 9.0, Total Bilirubin 0.30, AST 23, ALT 29, Alkaline Phosphatase 186 H, Total Protein 7.2, Albumin 3.2, Globulin 4.0, Albumin/Globulin Ratio 0.8 L, Lipase 25 Imagaing Radiology Impression Abdomen/Pelvis CT 10/13/23 07:20 IMPRESSION: Cholelithiasis associated with pericholecystic fluid, recommend right upper quadrant ultrasound for further characterization, cannot exclude cholecystitis. Atherosclerosis. Electronically Signed: Uzma Archer MD at 9:08 EST Reading Location ID and State: [facility] / [place] Tel , Service support , Gallbladder Ultrasound 10/13/23 09:11 IMPRESSION: Cholelithiasis associated with gallbladder wall thickening and a reported positive sonographic Kelley''s sign suggestive of cholecystitis. Nonvisualization of the pancreas secondary to overlying bowel gas. Electronically Signed: Uzma Archer MD at 10:12 EST Reading Location ID and State: [facility] / [place] Tel , Service support , Assessment & Plan Assessment/Plan (1) Acute cholecystitis: PLAN: Patient presented with abdominal pain. CT scan revealed thick-walled gallbladder with large gallstone. Patient does have pericholecystic fluid and a left shift. Patient has acute cholecystitis and I recommended laparoscopic cholecystectomy to him. I discussed the procedure in detail with the patient. I discussed the risks, benefits, and alternatives of the procedure. I discussed the risks including but not limited to bleeding, infection, injury to surrounding organs such as the liver, bile duct, bowels. I did discuss the possibility of having to convert to an open procedure as well as the possibility that if any injuries occurred this may necessitate further surgery at a tertiary care center. Patient will be given Zosyn in the emergency room and placed on the floor until I am able to complete surgery this afternoon. Fortino Banegas MD Pager: [facility] [address] [place] [address] [address] [place] [address] Office:
[2023-10-13] MEDS: Piperacil/Tazobactam 4.5 GM in 0.9% Normal Saline (100mL MB+) 100 ML IV (11:43)
--- OUTSIDE RECORDS SUMMARY | 2023-10-13 11:44 | XMS RPT_ITS | CCD ---
Author Name Unknown Address [address] [place] [address] Organization [facility] Care Team Providers Care Rod Mill Tender Name Role Phone ZAC BLANCO Unavailable Unavailable ZAC BLANCO Unavailable Unavailable ZAC BLANCO Unavailable Unavailable Bacilio FOREMAN, Fely Jacobsen Primary Care Provider JUAN CARLOS CALVILLO Referring Unavail FELY Villa Primary Care Unavailable FELY SOL Primary Care Unavailable FELY SOL Primary Care Unavailable FELY SOL Primary Care Unavailable JUA NCARLOS CALVILLO Referring Unavail FELY Villa Primary Care Unavailable FELY SOL Primary Care Unavailable Allergies Allergy Classification Reported Allergen(s) Allergy Type Date of Onset Reaction(s) Facility (3 sources) Seasonal allergy; Translations: [SEASONAL ALLERGIES] Propensity to adverse reactions (disorder) 3 Intolerance [facility] Other [facility] Medications Current Medications Medication Drug Class(es) Dates Sig (Normalized) Sig (Original) polymyxin b 07772 unt/ml / trimethoprim 1 mg/ml ophthalmic solution [...] 12-30-2009 Chronic Other aftercare (3 sources) Other watermelon inspector (current) drug therapy; Translations: [Other detention (current) drug therapy] Onset: 04-27-2023 Episodic Other [...] 09:04-0400 Body temperature 97.9 [degF] Erin Fernandez NUT CHOPPER.ELECTRONICS PARTS SALES REPRESENTATIVE Work Phone: [facility] 04-27-2022 09:04-0400 Body weight 130.64 kg Erin Fernandez NUT CHOPPER.ELECTRONICS PARTS SALES REPRESENTATIVE Work Phone: [facility] 04-27-2022 09:04-0400 Diastolic blood pressure 80 mm[Hg] Erin Fernandez NUT CHOPPER.ELECTRONICS PARTS SALES REPRESENTATIVE Work Phone: [facility] 04-27-2022 09:04-0400 Heart rate 66 /min Erin Fernandez NUT CHOPPER.ELECTRONICS PARTS SALES REPRESENTATIVE Work Phone: [facility] 04-27-2022 09:04-0400 Respiratory rate 18 /min Erin Fernandez NUT CHOPPER.ELECTRONICS PARTS SALES REPRESENTATIVE Work Phone: [facility] 04-27-2022 09:04-0400 SaO2% (BldA) [Mass fraction] 95 % Erin Fernandez NUT CHOPPER.ELECTRONICS PARTS SALES REPRESENTATIVE Work Phone: [facility] 04-27-2022 09:04-0400 Systolic blood pressure 132 mm[Hg] Erin Fernandez NUT CHOPPER.ELECTRONICS PARTS SALES REPRESENTATIVE Work Phone: [facility] Encounters Encounter Date Encounter Type Care Provider Facility Start: 09-15-2023 End: 09-16-2023 ambulatory FELY SOL Facility:[facility] Start: 08-16-2023 End: 08-17-2023 ambulatory JUAN CARLOS CALVILLO Facility:[facility] Start: 07-26-2023 End: 07-27-2023 ambulatory FELY SOL Facility:[facility] Start: 05-17-2023 End: 05-18-2023 ambulatory JUAN CARLOS CALVILLO Facility:[facility] Start: 04-27-2023 End: 04-28-2023 ambulatory FELY SOL Facility:[facility] Start: 01-24-2023 End: 01-25-2023 ambulatory FELY SOL Facility:[facility] Start: 04-27-2022 End: 04-27-2022 Patient encounter procedure Erin Jim NUT CHOPPER.ELECTRONICS PARTS SALES REPRESENTATIVE Work Phone: [facility] Procedures Date Procedure Procedure Detail Performing Clinician Start: 11-08-2017 Colonoscopy Erin Didier castillo NUT CHOPPER.ELECTRONICS PARTS SALES REPRESENTATIVE Work Phone: Start: 10-23-2017 Adult depression scr eening assessment Erin Fernandez NUT CHOPPER.ELECTRONICS PARTS SALES REPRESENTATIVE Work Phone: Plan of Treatment Date Care Activity Detail Author Start: 12-23-2023 DIABETES SCREEN DIABETES SCREEN [facility] Start: 11-08-2022 Colonoscopy COLONOSCOPY [facility] Start: 11-08-2022 COLORECTAL CANCER SCREENING COLORECTAL CANCER SCREENING [facility] Start: 06-16-2022 Influenza vaccination INFLUENZA (#1) [facility] Start: 01-27-2022 LIPID SCREEN LIPID SCREEN [facility] Start: 12-14-2021 COVID-19 VACCINE (4 - Booster for Moderna series) COVID-19 VACCINE (4 - Booster for Moderna series) [facility] Start: 10-16-2021 ADVANCE DIRECTIVE DISCUSSION ADVANCE DIRECTIVE DISCUSSION [facility] Start: 10-23-2018 Adult depression scr eening assessment DEPRESSION SCREENING [facility] Start: 10-23-2018 ANNUAL PCP TEAM LASER ENGRAVER AMIRA DISEASE VISIT ANNUAL PCP TEAM CHRONIC DISEASE VISIT [facility] Start: 12-05-2017 PROSTATE CANCER SCRE ENING DISCUSSION PROSTATE CANCER SCREENING DISCUSSION [facility] Start: 02-03-2011 Urine microalbumin profile DTAP,TDAP ,TD (1 - Tdap) [facility] Start: 2003 SHINGRIX VACCINE (1 of 2) SHINGRIX V ACCINE (1 of 2) [facility] Start: 1998 COLOGUARD (FIT-DNA) COLOGUARD (FIT-D NA) [facility] Start: [address] COLONOGRAPHY [facility] Start: 1998 FECAL OCCULT BLOOD FECAL OCCULT BLOO D [facility] Start: 1998 SIGMOIDOSCOPY SIGMOIDOSCOPY [facility] Start: 1971 BP CONTROLLED (<130/80) BP CONTROLLE D (<130/80) [facility] Start: 1959 PNEUMOCOCCAL: 65+ (1 - PCV) PNEUMOCOCCAL: 65+ (1 - PCV) [facility] Start: 1953 ABDOMINAL AORTIC ANE URYSM SCREENING ABDOMINAL AORTIC ANEURYSM SCREENING [facility] Immunizations Immunization Date Immunization Notes Care Provider Geeta ferrera 08-23-2016 influenza, injectabl e, quadrivalent, contains preservative Erin Fernandez NUT CHOPPER.ELECTRONICS PARTS SALES REPRESENTATIVE Work Phone: [facility] 02-02-2011 tetanus and diphther ia toxoids, not adsorbed, for adult use Erin Fenrandez NUT CHOPPER.ELECTRONICS PARTS SALES REPRESENTATIVE Work Phone: [facility] 07-16-2010 influenza virus vacc ine, whole virus Erin Fernandez NUT CHOPPER.ELECTRONICS PARTS SALES REPRESENTATIVE Work Phone: [facility] Payers Date Payer Category Payer Unknown [facility] [employer] O [id number] 2021-Present [phone] [address] [place] [address] O [id number] 2021 Unknown [id number] Social History Date Type Detail Facility Start: 06-04-2021 Tobacco smoking stat us IAIS Smokes tobacco daily [facility] Work Phone: History of tobacco use Cigarette Smoker C [facility] Work Phone: Start: 06-04-2021 Cigarettes smoked current (pack per day) - Reported 1 [facility] Start: 06-04-2021 Tobacco use and exposure Smokeless tobacco non-user [facility] Work Phone: Start: 04-27-2022 Alcohol intake Current drinke r of alcohol (finding) [facility] Start: 10-19-2011 History SDOH Alcohol Comment rare [facility] Start: 1955 Sex Assigned At Not on file C [facility] Start: 04-17-2022 End: 04-27-2022 Exposure to SARS-CoV-2 (event) Not sure [facility] Work Phone: History of Present illness Narrative 04-27-2022 Erin Fernandez APRN.ELECTRONICS PARTS SALES REPRESENTATIVE - 04/27/2022 9:20 AM EDT Note Date & Type Note Facility 04-27-2022 History of Presen t illness Narrative Images from the original note were not included. This note was created using Palringor[employer]. Subjective Jasper Snell is a 66 year [...] history is provided by the patient. No speech language pathologist was used. Eye Problem This [...] malignant neoplasm of skin, site unspecified LEFT YAZIDI Personal history of colonic polyps PAST SURGICAL [...] (FLONASE) 50 mcg/actuation nasal spray Use 1 [place] in each nostril once daily. metoprolol tartrate, [...] X 2 Noted at 10 and 05/[facility] No red flags Denies he wears contacts RX Polytrim Dr. Avila is his eye doctor, closed today He will call tomorrow for recheck in next 24 to 48 hours Discussed red flags 2. Acute right eye pain - ICD9: 379.91, ICD10: H57.11 Related to corneal abrasion RX Polytrim Erin Fernandez APRN.KASIA documented in this encounter [facility] Instructions 04-27-2022 Patient Instructions Note Date [...] your eye is patched. Your ability to cupboard builder distances is impaired. In some states, driving [...] your eye patch. documented in this encounter [facility] History of Past illness Narrative 06-30-2010 Note Date & Type Note Facility documented as of this encounter (statuses as of 04/27/2022) [facility] Evaluation note Note Date & Type Note Facility documented in this encounter [facility] Summary Purpose Family History No Family History Records FoundNo Family History Records FoundNo Family History Records Found Advance Directives No Advanced Directives Records FoundDocuments on File Type Date Recorded Patient Pallet Sorter Expl anation Advance Directive(s) 11/08/2017 12:35 PM Additional Source Comments (unrecognized sect ion and content) No Status Records FoundNo Status Records FoundNo Status Records Found INFORMATION SOURCE (unrecogn ized section and content) DATE CREATED AUTHOR AUTHOR'S ORGANIZ ATION 10/19/2019 [facility] ([place]) DATE CREATED AUTHOR AUTHOR'S ORGANIZ ATION 09/18/2023 [facility] Source Comments (unrecognize d section and content) In the event this informatio n is protected by the Federal Confidentiality of Alcohol and Drug Abuse Patient Records regulations: The Federal rules restrict any use of the information to criminally investigate or prosecute any alcohol or drug abuse patient.[facility] Reason for Visit (unrecogniz ed section [...] BE BASED ON THE PRIMARY CLINICAL RECORDS. [facility] [employer] [facility]. provides no warranty or guarantee of the accuracy or completeness of information in this document.
[2023-10-13] MEDS: 0.9% Normal Saline (1000mL) 1,000 ML 60 ML IV (12:36)
--- OUTSIDE RECORDS SUMMARY | 2023-10-13 13:59 | XMS RPT_ITS | CCD ---
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) drug therapy; Translations: [Other longterm (current) drug therapy] Onset: 04-27-2023 Episodic Other [...] 09:04-0400 Body temperature 97.9 [degF] Erin Fernandez CLOTH PRINTER HELPER.MANAGER TESTING Work Phone: [facility] 04-27-2022 09:04-0400 Body weight 130.64 kg Erin Fernandez CLOTH PRINTER HELPER.MANAGER TESTING Work Phone: [facility] 04-27-2022 09:04-0400 Diastolic blood pressure 80 mm[Hg] Erin Fernandez CLOTH PRINTER HELPER.MANAGER TESTING Work Phone: [facility] 04-27-2022 09:04-0400 Heart rate 66 /min Erin Fernandez CLOTH PRINTER HELPER.MANAGER TESTING Work Phone: [facility] 04-27-2022 09:04-0400 Respiratory rate 18 /min Erin Fernandez CLOTH PRINTER HELPER.MANAGER TESTING Work Phone: [facility] 04-27-2022 09:04-0400 SaO2% (BldA) [Mass fraction] 95 % Erin Fernandez CLOTH PRINTER HELPER.MANAGER TESTING Work Phone: [facility] 04-27-2022 09:04-0400 Systolic blood pressure 132 mm[Hg] Erin Fernandez CLOTH PRINTER HELPER.MANAGER TESTING Work Phone: [facility] Encounters Encounter Date Encounter Type Care Provider Facility Start: 09-15-2023 End: 09-16-2023 ambulatory FELY SOL Facility:[facility] Start: 08-16-2023 End: 08-17-2023 ambulatory JUAN CARLOS CALVILLO Facility:[facility] Start: 07-26-2023 End: 07-27-2023 ambulatory FELY SOL Facility:[facility] Start: 05-17-2023 End: 05-18-2023 ambulatory JUAN CARLOS CALVILLO Facility:[facility] Start: 04-27-2023 End: 04-28-2023 ambulatory FELY SOL Facility:[facility] Start: 01-24-2023 End: 01-25-2023 ambulatory FELY SOL Facility:[facility] Start: 04-27-2022 End: 04-27-2022 Patient encounter procedure Erin Jim CLOTH PRINTER HELPER.MANAGER TESTING Work Phone: [facility] Procedures Date Procedure Procedure Detail Performing Clinician Start: 11-08-2017 Colonoscopy Erin Didier castillo CLOTH PRINTER HELPER.MANAGER TESTING Work Phone: Start: 10-23-2017 Adult depression scr eening assessment Erin Fernandez CLOTH PRINTER HELPER.MANAGER TESTING Work Phone: Plan of Treatment Date Care Activity Detail Author Start: 12-23-2023 DIABETES SCREEN DIABETES SCREEN [facility] Start: 11-08-2022 Colonoscopy COLONOSCOPY [facility] Start: 11-08-2022 COLORECTAL CANCER SCREENING COLORECTAL CANCER SCREENING [facility] Start: 06-16-2022 Influenza vaccination INFLUENZA (#1) [facility] Start: 01-27-2022 LIPID SCREEN LIPID SCREEN [facility] Start: 12-14-2021 COVID-19 VACCINE (4 - Booster for Moderna series) COVID-19 VACCINE (4 - Booster for Moderna series) [facility] Start: 10-16-2021 ADVANCE DIRECTIVE DISCUSSION ADVANCE DIRECTIVE DISCUSSION [facility] Start: 10-23-2018 Adult depression scr eening assessment DEPRESSION SCREENING [facility] Start: 10-23-2018 ANNUAL PCP TEAM CHIEF PROCUREMENT OFFICER AMIRA DISEASE VISIT ANNUAL PCP TEAM CHRONIC DISEASE VISIT [facility] Start: 12-05-2017 PROSTATE CANCER SCRE ENING DISCUSSION PROSTATE CANCER SCREENING DISCUSSION [facility] Start: 02-03-2011 Urine microalbumin profile DTAP,TDAP ,TD (1 - Tdap) [facility] Start: 2003 SHINGRIX VACCINE (1 of 2) SHINGRIX V ACCINE (1 of 2) [facility] Start: 1998 COLOGUARD (FIT-DNA) COLOGUARD (FIT-D NA) [facility] Start: [address] COLONOGRAPHY [facility] Start: 1998 FECAL OCCULT BLOOD FECAL OCCULT BLOO D [facility] Start: 1998 SIGMOIDOSCOPY SIGMOIDOSCOPY [facility] Start: 1971 BP CONTROLLED (<130/80) BP CONTROLLE D (<130/80) [facility] Start: 1959 PNEUMOCOCCAL: 65+ (1 - PCV) PNEUMOCOCCAL: 65+ (1 - PCV) [facility] Start: 1955 ABDOMINAL AORTIC ANE URYSM SCREENING ABDOMINAL AORTIC ANEURYSM SCREENING [facility] Immunizations Immunization Date Immunization Notes Care Provider Geeta ferrera 08-23-2016 influenza, injectabl e, quadrivalent, contains preservative Erin Fernandez CLOTH PRINTER HELPER.MANAGER TESTING Work Phone: [facility] 02-02-2011 tetanus and diphther ia toxoids, not adsorbed, for adult use Erin Fernandez CLOTH PRINTER HELPER.MANAGER TESTING Work Phone: [facility] 07-16-2010 influenza virus vacc ine, whole virus Erin Fernandez CLOTH PRINTER HELPER.MANAGER TESTING Work Phone: [facility] Payers Date Payer Category Payer Unknown ANTHEM [facility] [employer] O [id number] 2021-Present [phone] [address] [place] [address] O [id number] 2021 Unknown [id number] Social History Date Type Detail Facility Start: 06-04-2021 Tobacco smoking stat us [facility] Smokes tobacco daily [facility] Work Phone: History of tobacco use Cigarette Smoker C [facility] Work Phone: Start: 06-04-2021 Cigarettes smoked current (pack per day) - Reported 1 [facility] Start: 06-04-2021 Tobacco use and exposure Smokeless tobacco non-user [facility] Work Phone: Start: 04-27-2022 Alcohol intake Current drinke r of alcohol (finding) [facility] Start: 10-19-2011 History SDOH Alcohol Comment rare [facility] Start: 1955 Sex Assigned At Not on file C [facility] Start: 04-17-2022 End: 04-27-2022 Exposure to SARS-CoV-2 (event) Not sure [facility] Work Phone: History of Present illness Narrative 04-27-2022 Erin Fernandez APRN.MANAGER TESTING - 04/27/2022 9:20 AM EDT Note Date & Type Note Facility 04-27-2022 History of Presen t illness Narrative Images from the original note were not included. This note was created using Utopiariter. Subjective Jasper Snell is a 66 year [...] is provided by the patient. No language assistant was used. Eye Problem This is a [...] malignant neoplasm of skin, site unspecified LEFT ANABAPTIST Personal history of colonic polyps PAST SURGICAL [...] (FLONASE) 50 mcg/actuation nasal spray Use 1 [place] in each nostril once daily. metoprolol tartrate, [...] X 2 Noted at 12 and 05/24 [facility] No red flags Denies he wears contacts RX Poly[facility] Dr. Avila is his eye doctor, closed today He will call tomorrow for recheck in next 24 to 48 hours Discussed red flags 2. Acute right eye pain - ICD9: 379.91, ICD10: H57.11 Related to corneal abrasion RX Polytrim Erin Fernandez APRN.KASIA documented in this encounter [facility] Instructions 04-27-2022 Patient Instructions Note Date [...] your eye is patched. 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 In some states, driving [...] your eye patch. 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 Advance Directive(s) 11/08/2017 12:35 PM Additional Source Comments (unrecognized sect ion and content) No Status Records FoundNo Status Records FoundNo Status Records Found INFORMATION SOURCE (unrecogn ized section and content) DATE CREATED AUTHOR AUTHOR'S ORGANIZ ATION 10/19/2019 [facility] ([place]) DATE CREATED AUTHOR AUTHOR'S ORGANIZ ATION 09/18/2023 [facility] Source Comments (unrecognize d section and content) In the event this informatio n is protected by the Federal Confidentiality of Alcohol and Drug Abuse Patient Records regulations: The Federal rules restrict any use of the information to criminally investigate or prosecute any alcohol or drug abuse patient.[facility] Reason for Visit (unrecogniz ed section [...] BE BASED ON THE PRIMARY CLINICAL RECORDS. [facility] [employer] [facility]. provides no warranty or guarantee of the accuracy or completeness of information in this document.
--- NOTE | 2023-10-13 15:30 | GALL_PTH ---
PATHOLOGY RESULTS PATIENT: CARLOS LAFLEUR LOC: MS3 U#:[id number] AGE/SX: 68/M ROOM: CT319 RE10/13/[address]: Dr. Fortino Banegas MD : 1955 BED: 1 DIS: 10/14/2023 SPEC #: [id number] RECD: 10/17/23 07:53 STATUS: MARYANA GARCÍA #: [id number] FRANCISCO JAVIER: 10/13/23 15:[address]: Fortino Banegas DEPT: SURGICAL PATHOLOGY RECD BY: Lina Frazier ENTERED: 10/17/23 07:53 SP TYPE: SAMARA VILLASENOR DR: Dr. Eusebio Sage MD Tissues: Gallbladder, NOS Procedures: Surgery Specimen Level III HEADER OPERATION: Laparoscopic cholecystectomy with IOC PRE-OP DIAGNOSIS: Acute cholecystitis TISSUE SUBMITTED: Gallbladder MICROSCOPIC DIAGNOSIS Gallbladder, cholecystectomy: Acute cholecystitis with denudation of mucosa and reactive epithelial changes. Cholelithiasis. Benign pericystic lymph node. AM:janell 10/18/2023 MICROSCOPIC DESCRIPTION Slides are reviewed. GROSS DESCRIPTION Received is one container labeled with the patient's name and designated gallbladder. The specimen consists of a gallbladder measuring 10.0 cm in length and up to 4.0 cm in diameter. The external surface is pink-corona, smooth and glistening for the most part. Focally it is granular, hemorrhagic and contains cautery artifact. The gallbladder contains multiple yellowish-brown stones and stone fragments measuring in aggregate 3.5 x 2.0 x 1.5 cm and 0.1 to 1.6 cm in greatest dimension. The mucosa is bile-stained and without any mass lesions. The gallbladder wall measures up to 1.2 cm in thickness. Sections reveal edematous cut surfaces. Also present close to cystic duct is a corona nodule, a possible lymph node, measuring 0.9 cm in greatest dimension. Maintenance Equipment Operator sections from the gallbladder and the cystic duct are submitted in two cassettes including possible lymph node. / SJ:janell 10/17/2023 TC:2 CPT: 83601
--- NOTE | 2023-10-13 15:37 | RAD_ITS ---
EXAM: FL CHOLANGIOGRAPHY AND/OR PANCREATOGRAPHY CLINICAL INDICATION: TECHNIQUE: Single AP radiograph of the upper abdomen obtained at the time of laparoscopic cholecystectomy. Contrast injected via the cystic duct. COMPARISON: No relevant prior studies available. FINDINGS: Normal-appearing biliary tree. Small filling defects noted within the cystic duct. Common bile duct has a normal appearance. There is visualization of the duodenum. See operative note for additional information. RAD/Cholangiogram/ O R,Initial IMPRESSION: Cystic duct stones. Normal common bile duct. Electronically Signed: Davian Dias MD at 16:50 EST ,
[2023-10-13] MEDS: Bupivacaine 0.25% 30 ML Vial (16:26)
--- NOTE | 2023-10-13 16:28 | OP.PCM_ITS ---
Report of Operation Date of Procedure: 10/13/23 Pre-Operative Diagnosis: Acute cholecystitis Post-Operative Diagnosis: Acute cholecystitis Surgery/Procedure Performed:: Laparoscopic cholecystectomy with cholangiogram Type of Anesthesia: General/Regional Specimen's removed: Gallbladder Estimated Blood Loss (mL): 10 Description of Procedure: After obtaining informed consent patient was brought back to the operating room. General anesthesia was induced. The abdomen was prepped and draped in usual sterile fashion. A small midline incision was made superior to the umbilicus and deepened to the level of fascia. The fascia was elevated and incised. Next the peritoneum was elevated and incised in the same fashion. Finger sweep was performed and the Chahal trocar was placed into the abdomen. The balloon was inflated. The abdomen was inflated to 15 mmHg. Next a camera was introduced into the abdomen and the abdomen was inspected. Next under direct visualization three 5-mm ports were placed one subxiphoid and 2 subcostal. Next the gallbladder was elevated and retracted toward the right shoulder. The peritoneum was stripped from the gallbladder. The gallbladder was inflamed and the fat around the infundibulum was gangrenous. The infundibulum was located and retracted laterally. Next the triangle of Calot was dissected and the cystic duct and cystic artery were identified. Cholangiograms were performed. The Sanford clamp was used to clamp across the infundibulum and the catheter needle was inserted into the gallbladder. Under fluoroscopy contrast was instilled into the gallbladder and the common duct, cystic duct as well as proximal hepatic ducts were identified. There was good filling of the duodenum. There were no filling defects noted in the common bile duct. The clamp was removed as well as the needle and the infundibulum was grasped once more. Three hemolock clips were placed across the cystic duct. The cystic duct was then d ivided leaving 2 clips on the stump. The cystic artery was clipped and divided in the same fashion. The hook cautery was then used to take the gallbladder off of the gallbladder bed. Hemostasis was obtained. Gallbladder fossa was irrigated and no active bleeding or bile leakage was noted. Next the camera was introduced in the subxiphoid port. An Endopouch bag was placed through the umbilical port and the gallbladder was placed into it. The gallbladder was then removed through the umbilical incision. The camera was then reinserted through the umbilical port. The gallbladder fossa was inspected once more and noted to be hemostatic with no leaking bile. The abdomen was suctioned dry. The 5 mm ports were removed under direct visualization. The umbilical port was then removed and the air was removed from the abdomen. Next using an 0 Vicryl suture the umbilical fascia was closed in a [id number] fashion. The umbilical port site was irrigated local anesthetic was administered to all the incisions. All the incisions were closed with interrupted subcuticular 4-0 Monocryl sutures followed by Steri-Strips and dressings. The patient was awoken and taken to PACU in stable condition. Admit VTE Documentation VTE Mechan Device Prophylaxis: SCD's
[2023-10-13] MEDS: Ipratropium/Albuterol Sulfate 3 ML AMPUL.NEB INHALATION (17:25)
[2023-10-13] MEDS: Metoprolol Tartrate 50 MG Tablet PO (22:00)
[2023-10-13] MEDS: Acetaminophen 325 MG Tablet 650 MG PO (22:30)
[2023-10-14 00:39] VITALS: PULSE 67; O2SAT 91
[2023-10-14 02:24] VITALS: BP 136/75; PULSE 69; RESP 20; TEMP 37; O2SAT 92
--- NOTE | 2023-10-14 02:24 | NURSING ---
Earlier this evening patient ambulated 2 laps around unit with SBA.
[2023-10-14] MEDS: Acetaminophen 325 MG Tablet 650 MG PO (06:51)
[2023-10-14] MEDS: 0.9% Normal Saline (1000mL) 1,000 ML 60 ML IV (06:52)
[2023-10-14 06:53] VITALS: BP 136/65; PULSE 72; RESP 22; TEMP 36.6; O2SAT 93
[2023-10-14 07:34] LABS: Absolute Lymphocyte Count 1.09 X10^3/uL (0.83-4.51); Absolute Neutrophil Count 11.5 X10^3/uL (2.0-7.7); Basophil# 0.01 X10^3/uL; Basophil% 0.1 % (0-1); Hematocrit 43.7 % (40-54); Lymphocyte # 1.09 X10^3/ul (0.83-4.51); Lymphocyte % 8.3 % (19-41); Mean Corpuscular Hgb 31.1 pg (27.0-32.0); Mean Corpuscular Volume 97.1 fL (80-94); Monocyte# 0.53 X10^3/uL; NRBC Flagged by Analyzer 0 % (0-5); Neutrophil # 11.48 X10^3/uL (2.7-7.7); Neutrophil % 87.2 % (47-70); POSITIVE COUNT YES; RBC Distribution Width CV 13.4 % (11.6-14.6); White Blood Count 13.2 K/mm3 (4.4-11.0)
[2023-10-14 07:49] LABS: ALB/GLOB Ratio 0.7 RATIO (0.9-2.4); AST(SGOT) 30 U/L (15-37); Alanine Aminotransfer ALT/SGPT 40 U/L (16-61); Albumin, Serum 2.8 g/dL (3.2-5.0); Alkaline Phosphatase 102 U/L (45-117); Anion Gap 2 (5-15); BUN 12 mg/dL (7-18); BUN/Creat Ratio 12.1 RATIO (10-20); Calcium,Total 8.5 mg/dL (8.5-10.1); Chloride 107 mmol/L (98-107); Creatinine, Serum 0.99 mg/dL (0.70-1.30); EST Glomerular Filtration Rate 79 mL/min (>60); Est Glom Filt Rate - Afr Amer 96 mL/min (>60); Estimated Creatinine Clearance 82.98 ml/min; Globulin 3.9 g/dL (2.2-4.2); Glucose 149 mg/dL (74-106); Potassium 4.5 mmol/L (3.5-5.1); Protein, Total 6.7 g/dL (6.4-8.2); Sodium Level 137 mmol/L (136-145)
--- NOTE | 2023-10-14 08:13 | PCM.DC.SUM ---
Providers Date of Admission: 10/13/23 Primary Care Physician: Dr. Eusebio Sage MD Reason For Visit: ACUTE CHOLECYSTITIS Diagnosis Discharge Diagnosis (1) Acute cholecystitis: Status: Acute Code(s): K81.0 - Acute cholecystitis Plan: Patient presented with abdominal pain. CT scan revealed thick-walled gallbladder with large gallstone. Patient does have pericholecystic fluid and a left shift. Patient has acute cholecystitis and I recommended laparoscopic cholecystectomy to him. I discussed the procedure in detail with the patient. I discussed the risks, benefits, and alternatives of the procedure. I discussed the risks including but not limited to bleeding, infection, injury to surrounding organs such as the liver, bile duct, bowels. I did discuss the possibility of having to convert to an open procedure as well as the possibility that if any injuries occurred this may necessitate further surgery at a tertiary care center. Patient will be given Zosyn in the emergency room and placed on the floor until I am able to complete surgery this afternoon. Fortino Banegas MD Pager: [facility] [address] [place] [address], [address] [place] [address] Office: Medications at Discharge Home Medications dapsone 25 mg tablet 25 mg PO DAILY 10/13/23 metoprolol tartrate 50 mg tablet 50 mg PO BID 10/13/23 acetaminophen 325 mg tablet 650 mg (2 x 325 mg) PO Q4H PRN PRN Pain 1-10 Or Fever #0 tabs 10/14/23 oxycodone 5 mg tablet 5 - 10 mg (1 - 2 x 5 mg) PO Q4H PRN PRN Pain Score 4-10/10 5 days #15 tabs 10/14/23 Hospital Course Operations cholecystecomy Summary of Care Provided Hospital Course: The patient is doing well this morning. He reports tolerating clear liquids with no nausea or vomiting. His pain is much improved from before surgery. Physical Exam Const oriented x3 and no apparent distress Resp normal respiratory effort GI soft to palpation and non-tender Extremity normal to inspection Weight / BMI Weight Weight: 280 lb 13.903 oz Body Mass Index (BMI) 35.1 ABG / Lab / Microbiology Data 10/13/23 07:33 10/14/23 07:07 Laboratory: Laboratory Results - last 24 hr 10/14/23 07:07: Sodium 137, Potassium 4.5, Chloride 107, Carbon Dioxide 28.0, Anion Gap 2 L, BUN 12, Creatinine 0.99, Estim Creat Clear Calc 82.98, Est GFR (MDRD) Af Amer 96, Est GFR (MDRD) Non-Af 79, BUN/Creatinine Ratio 12.1, Glucose 149 H, Calcium 8.5, Total Bilirubin 0.60, AST 30, ALT 40, Alkaline Phosphatase 102, Total Protein 6.7, Albumin 2.8 L, Globulin 3.9, Albumin/Globulin Ratio 0.7 L Radiography Diagnostic Testing: Radiology Impression Abdomen/Pelvis CT 10/13/23 07:20 IMPRESSION: Cholelithiasis associated with pericholecystic fluid, recommend right upper quadrant ultrasound for further characterization, cannot exclude cholecystitis. Atherosclerosis. Electronically Signed: Uzma Archer MD at 9:08 EST , Gallbladder Ultrasound 10/13/23 09:11 IMPRESSION: Cholelithiasis associated with gallbladder wall thickening and a reported positive sonographic Kelley''s sign suggestive of cholecystitis. Nonvisualization of the pancreas secondary to overlying bowel gas. Electronically Signed: Uzma Archer MD at 10:12 EST , Cholangiogram 10/13/23 15:37 IMPRESSION: Cystic duct stones. Normal common bile duct. Electronically Signed: Davian Dias MD at 16:50 EST , D/C Instructions Discharge Diet: Light diet - advance as tolerated Discharge Activity: May Not Drive (for 2-3 days or while taking narcotic pain medications.) and - (Do not drive, work heavy equipment or sign legal documents for 24 hours.) May shower in (days): 1 Lifting Restrictions: 20 lbs for 2 weeks Additional Activity Instructions: Pain medication may cause nausea. You should typically eat light foods as you take your pain medications. Pain medication may also cause constipation. If this is a problem for you, please discuss with your doctor. Call your doctor if your incision/area has: Continuous Slow Oozing, Sudden Increased Bleeding, Increased Pain/ Swelling, Increased Redness and Foul Smelling Discharge Call your doctor if you observe: Fever of 101 or Higher Suture Line Care: Avoid Pulling/Pushing and Avoid Pinching/Bending Remove Dressing in: 2 days Additional Dressing/Incision Instructions: Leave operative bandaids on for 2 days. When you remove dressing, leave Steri-Strips on until your follow-up appointment, or until the Steri-Strips fall off on their own. Please Follow Up With: Fortino Banegas MD When: Please call to schedule 2 week follow up appointment. [phone] Meaningful Use Info Meaningful Use Diagnoses (Choose all that apply): None applicable Discharge Plan Admission Admit Date/Time: 10/13/23 10:58 Attending Provider: Fortino Banegas Primary Care Provider: Eusebio Sage Instructions Additional Instructions / Restrictions: Alternate ibuprofen and Tylenol for pain control, oxycodone for breakthrough pain. Discharge Orders/Prescriptions Prescriptions: New acetaminophen 325 mg Tablet 650 mg PO Q4H PRN PRN (Reason: Pain 1-10 Or Fever) Qty: 0 0RF oxycodone 5 mg Tablet 5 - 10 mg PO Q4H PRN PRN (Reason: Pain Score 4-10/10) 5 Days Qty: 15 0RF Continued metoprolol tartrate 50 mg tablet 50 mg PO BID Patient Comments: take 1 tablet by mouth twice a day dapsone 25 mg tablet 25 mg PO DAILY Referrals / Follow Up: Eusebio Sage MD [Primary Care Provider] - Disposition Disposition (needs filled in before D/C Order can be placed): Home, Self Care
[2023-10-14 08:45] LABS: Differential Comment SCANNED; Differential Indicated SCAN CRITERIA MET
[2023-10-14 08:46] LABS: Platelet Estimate ADEQUATE (ADEQ)
[2023-10-14 08:51] VITALS: PULSE 68
[2023-10-14] MEDS: Metoprolol Tartrate 50 MG Tablet PO (08:51)
[2023-10-14 09:50] VITALS: BP 134/62; PULSE 64; RESP 18; TEMP 36.6; O2SAT 93
== END 2023-10-14 10:08 | disposition home or self-care (01) ==
LOC: ED 10:56 → MS3 13:32
PROVIDERS: Admitting Provider Surgery; Emergency Provider Emergency Medicine; PCP Family Medicine; Visit Provider Surgery
PROC: (CPT 47610; principal; 2023-10-13 15:10)
DX: K80.00 Calculus of gallbladder with acute cholecystitis without obstruction (principal); F17.210 Nicotine dependence, cigarettes, uncomplicated; I10 Essential (primary) hypertension; R73.9 Hyperglycemia, unspecified; Z79.899 Other long term (current) drug therapy
CPT/HCPCS: 47563; 00790; 36415; 74177; 74300; 76000; 76705; 80053; 83690; 85025; 88304; 93005; 94640; 96374; 96375; 96376; 99221; 99284; J7030; J7040; Q9967; A4216; G0378; J2405

== ENCOUNTER → 2023-11-28 | Outpatient (CLI) | payer MEDICARE, SELFPAY | END | disposition home or self-care (01) | LOC: MFPLAB 09:03 | PROVIDERS: PCP Family Medicine; Visit Provider Family Medicine | DX: Z12.5 Encounter for screening for malignant neoplasm of prostate (principal) | CPT/HCPCS: 36415; 84153; G0103 ==

== ENCOUNTER 2024-02-23 07:52 | Day surgery (SDC) | payer MEDICARE, SELFPAY ==
[2024-02-23 08:10] VITALS: BP 142/75; PULSE 63; RESP 16; TEMP 36; O2SAT 95; BMI 36.5
--- NOTE | 2024-02-23 08:25 | H&P.OPEN ---
HPI - General HPI Narrative CARLOS LAFLEUR, is a 68 M who presents for surveillance colonoscopy. His last colonoscopy was 6 years ago. The patient reports he was on a 5-year plan due to multiple polyps the colonoscopy before that. He is not having any abdominal pain or blood in the stool. He is not on any blood thinners. [facility] Medical History (Updated 02/23/24 @ 08:[address] Fortino Banegas MD) Alcohol use Arthritis Cancer Celiac disease Dietary restriction Herpetiformis dermatitis Hx of colonic polyps Hypertension Seasonal allergies Smoker Wears glasses Wears partial dentures Home Medications dapsone 25 mg tablet 25 mg PO DAILY 10/13/23 [History Last Taken Unknown] metoprolol tartrate 50 mg tablet 50 mg PO BID 10/13/23 [History Last Taken Unknown] cetirizine 10 mg tablet (Zyrtec) 10 mg PO DAILY 01/01/24 [History Last Taken Unknown] clobetasol 0.05 % topical cream 1 applic topical BID PRN itching 01/01/24 [History Last Taken Unknown] cyanocobalamin (vitamin B-12) 1,000 mcg tablet (Vitamin B-12) 1,000 mcg PO DAILY 01/01/24 [History Last Taken Unknown] multivitamin 1 tab PO DAILY 01/01/24 [History Last Taken Unknown] Allergy/AdvReac Type Severity Reaction Status Date / Time No Known Allergies Allergy Verified 02/21/24 14:56 Surgical History History of basal cell carcinoma excision History of left knee replacement History of melanoma excision Hx of appendectomy Hx of colonoscopy S/P laparoscopic cholecystectomy Social History (Updated 01/01/24 @ 12:51 by Vicki Simpson) household members: none and other details: current occupational status: retired Smoking Status: Current every day smoker tobacco type: cigarettes details: occasional alcohol substance use type: does not use Past Medical/Surgical History Planned Operation Planned Operative Procedure/s: CSCOPE Previous Hospitalizations/Surgeries HX Hospitalizations: Yes (09/2023 [facility]) Any Problems With Anesthesia: No You/Your Family Experience Fever (Hyperthermia) With Anes: No Cholinesterase deficiency: No Cardiovascular Hx of Irregular Heartbeat and/or Afib: No Hx Heart Attack: No Hx Congestive Heart Failure: No Hx Rheumatic Fever: No Hx Hypertension: Yes (CONTROLLED) Hx Pacemaker: No Respiratory HX of Shortness of Breath: No Hx Chronic Obstructive Pulmonary Disease (COPD): No Hx Asthma: No Hx Emphysema: No Hx Sleep Apnea: No Hx Respiratory Tract Infection/Cold (presently): No Do You Snore Loudly (louder than talking or can be heard): No Do You Often Feel Tired/ Fatigued/ Sleepy Dring Daytime?: No Has Anyone Observed You Stop Breathing During Sleep?: No Result (for STOP score): Negative Smoking Status: Current every day smoker Gastrointestinal Hx Ulcer: No Neurological Hx Seizures: No Hx Multiple Sclerosis: No Hx Parkinson's Disease: No Hx Head/Neck Injury: No Hx Headaches: Yes Hx Back Injury/Pain: No Does patient have nerve stimulator: No Blood Disorder Hx Hepatitis: No Hx Anemia: No Reproduction : No Musculoskeletal Hx Arthritis: No Hx Gout: No Endocrine Hx Diabetes: No Thyroid Disease: No Psycho/Social Hx Anxiety: Yes Hx Depression: Yes Hx Dementia: No Miscellaneous Hx Cancer: No Recent Exposure to Contagious Disease: No Allergies No Known Allergies Allergy (Verified 02/21/24 14:56) Discharge Is Pt Admitted From a [facility], or a Senior Care: No After D/C, Where Do you Plan to Go: Return Home From the [facility] History Number of Risk Factors: 2 Vital Signs Vital Signs Vital Signs: 02/23/24 08:10 02/23/24 08:10 Temperature 96.8 F L Temperature Source Temporal Pulse Rate 63 Respiratory Rate 16 Respiratory Pattern Normal Blood Pressure 142/75 H Blood Pressure Mean 97 Blood Pressure Source Monitor Blood Pressure Position Semi-Fowlers Blood Pressure Location Right Arm Pulse Ox 95 Oxygen Delivery Method Room Air Weight Weight: 284 lb 6.341 oz Body Mass Index (BMI) 36.5 Physical Exam Const alert and oriented x3 HEENT normocephalic Eyes PERRL Resp normal respiratory effort and normal air movement Cardio regular rate and regular rhythm GI soft to palpation, non-tender and non-distended Extremity normal to inspection Assessment & Plan Assessment/Plan (1) Hx of colonic polyps: PLAN: I explained endoscopy in detail to the patient. I explained the risks including but not limited to stroke or heart attack with anesthesia, perforation of the GI tract, bleeding, infection. I explained that any of these could necessitate further emergency surgery. The patient understands and all questions were answered sufficiently. The patient wishes to proceed with procedure. Fortino Banegas MD Pager: [facility] [address] [place] [address], [address] [place] [address] Office: Surgery Risks - Colonoscopy Risks Include but are not Limited To: Risks include but are not limited to: Bleeding, perforation requiring further surgery, inability to complete colonoscopy requiring barium enema.
[2024-02-23] MEDS: Lactated Ringers 1,000 ML 15 ML IV (08:27)
[2024-02-23 09:00] VITALS: BP 142/72; BP 98/60; PULSE 58; RESP 17; TEMP 36.6; O2SAT 94
[2024-02-23 09:05] VITALS: BP 109/61; BP 142/72; PULSE 56; RESP 18; O2SAT 94
--- NOTE | 2024-02-23 09:06 | OP.COLON_ITS ---
Patient Name: Jasper Snell Procedure Date: 02/23/2024 8:43 AM Date of : 1955 Age: 68 Procedure: Colonoscopy Indications: High risk colon cancer surveillance: Personal history of colonic polyps Providers: Fortino Banegas MD Referring MD: Eusebio Sage Medicines: Propofol per Anesthesia Patient Profile: This is a 68 year old male. Refer to note in patient chart for documentation of history and physical. Last Colonoscopy: 5 years ago. Complications: No immediate complications. Procedure: Pre-Anesthesia Assessment: - Prior to the procedure, a History and Physical was performed, and patient medications and allergies were reviewed. The patient's tolerance of previous anesthesia was also reviewed. The risks and benefits of the procedure and the sedation options and risks were discussed with the patient. All questions were answered, and informed consent was obtained. Prior Anticoagulants: The patient has taken no anticoagulant or antiplatelet agents. After reviewing the risks and benefits, the patient was deemed in satisfactory condition to undergo the procedure. After I obtained informed consent, the scope was passed under direct vision. Throughout the procedure, the patient's blood pressure, pulse, and oxygen saturations were monitored continuously. The colonoscope was introduced through the anus and advanced to the cecum, identified by appendiceal orifice and ileocecal valve. The colonoscopy was performed without difficulty. The patient tolerated the procedure well. The quality of the bowel preparation was good. The ileocecal valve, appendiceal orifice, and rectum were photographed. Scope In: 8:45:51 AM Scope Out: 8:56:58 AM Total Procedure Duration Time 0 hours 11 minutes 7 seconds Findings: The entire examined colon appeared normal on direct and retroflexion views. Impression: - The entire examined colon is normal on direct and retroflexion views. - No specimens collected. Recommendation: - Discharge patient to home. - Resume previous diet. - Continue present medications. - Repeat colonoscopy is not recommended due to current age (66 years or older) for screening purposes. Procedure Code(s): --- Professional --- G0105, Colorectal cancer screening; colonoscopy on individual at high risk Diagnosis Code(s): --- Professional --- Z86.010, Personal history of colonic polyps CPT copyright 2021 [employer]. All rights reserved. The codes documented in this report are preliminary and upon enrollment management vice president review may be revised to meet current compliance requirements. Fortino Banegas MD 02/23/2024 9:06:02 AM This report has been signed electronically. Number of Addenda: 0 Note Initiated On: 02/23/2024 8:43 AM
--- NOTE | 2024-02-23 09:06 | OP.CCLET_ITS ---
02/23/2024 Eusebio Sage [address] [place] [address] Re : Colonoscopy procedure for Jasper Snell Dear Dr. Sage This procedure was performed on Friday, February 23, 2024. My impressions and recommendations are as follows: Impressions : - The entire examined colon is normal on direct and retroflexion views. - No specimens collected. Recommendations : - Discharge patient to home. - Resume previous diet. - Continue present medications. - Repeat colonoscopy is not recommended due to current age (66 years or older) for screening purposes. My findings are described in the full procedure note, which is enclosed. If I can be of further assistance, please feel free to contact me at Doctor phone number(s): , Work: . Sincerely, Fortino Banegas MD 02/23/2024 9:06:02 AM This report has been signed electronically.
[2024-02-23 09:10] VITALS: BP 107/57; BP 142/72; PULSE 60; RESP 18; O2SAT 91
[2024-02-23 09:18] VITALS: BP 111/56; BP 142/72; PULSE 59; RESP 18; TEMP 36.9; O2SAT 92
[2024-02-23 09:26] VITALS: BP 142/72
== END 2024-02-23 09:53 | disposition home or self-care (01) ==
LOC: EN 07:53 → AC 07:54
PROVIDERS: PCP Family Medicine; Referring Provider Family Medicine; Visit Provider Surgery
PROC: 0DJD8ZZ Inspection of Lower Intestinal Tract, Via Natural or Artificial Opening Endoscopic (ICD-10-PCS; CPT 45378; principal; 2024-02-23 08:40)
DX: Z12.11 Encounter for screening for malignant neoplasm of colon (principal); I10 Essential (primary) hypertension; F17.210 Nicotine dependence, cigarettes, uncomplicated; Z86.010 Personal history of colon polyps; Z79.899 Other long term (current) drug therapy
CPT/HCPCS: G0105; J7120; J2405

== ENCOUNTER → 2024-07-24 | Outpatient (CLI) | payer MEDICARE, SELFPAY ==
[2024-07-24 09:39] LABS: Bacteria 0 SEEN /hpf (None Seen); Mucous, Urine 0 SEEN /hpf (<or=2+); Red Blood Cells-Urine 0 SEEN /hpf (0-5); Squamous Epithelial Cells - UA 0 SEEN /hpf (0-5); White Blood Cells 0 SEEN /hpf (0-5)
[2024-07-24 12:35] LABS: Color, Urine Yellow (Yellow); Glucose, Dipstick Normal (Normal); Ketone-Dipstick Negative (Negative); Leukocyte Esterase-Dipstick Negative /ul (Negative); Nitrite-Dipstick Negative (Negative); Occult Blood-Urine 10 /ul (Negative); Protein-Dipstick Negative (Negative); Specific Gravity, Urine 1.015 (1.002-1.030); Urine Bilirubin Dipstick Negative (Negative); Urine Clarity Clear (Clear); Urine Urobilinogen 1 mg/dl (Normal)
[2024-07-24 12:38] LABS: Absolute Lymphocyte Count 2.12 X10^3/uL (0.83-4.51); Absolute Neutrophil Count 5.5 X10^3/uL (2.0-7.7); Basophil# 0.03 X10^3/uL; Basophil% 0.4 % (0-1); Eosinophil# 0.23 X10^3/uL; Eosinophils% 2.7 % (0-5); Hematocrit 43.9 % (40-54); Hemoglobin 14.4 g/dL (13.0-16.5); Lymphocyte # 2.12 X10^3/ul (0.83-4.51); Lymphocyte % 24.9 % (19-41); Mean Corp Hgb Conc 32.8 g/dL (32-36); Mean Corpuscular Hgb 31.2 pg (27.0-32.0); Mean Corpuscular Volume 95.2 fL (80-94); Mean Platelet Vol. 13.5 fl (6.2-12.0); Monocyte# 0.63 X10^3/uL; Monocyte% 7.4 % (0-10); NRBC Flagged by Analyzer 0 % (0-5); Neutrophil # 5.47 X10^3/uL (2.7-7.7); Neutrophil % 64.2 % (47-70); Platelet Count 150 K/mm3 (150-450); RBC Distribution Width CV 13.4 % (11.6-14.6); RBC Distribution Width SD 47.3 fl (35.1-43.9); Red Blood Count 4.61 M/mm3 (4.6-6.2); White Blood Count 8.5 K/mm3 (4.4-11.0)
[2024-07-24 13:06] LABS: ALB/GLOB Ratio 0.8 RATIO (0.9-2.4); AST(SGOT) 26 U/L (15-37); Alanine Aminotransfer ALT/SGPT 31 U/L (16-61); Albumin, Serum 3.5 g/dL (3.2-5.0); Alkaline Phosphatase 127 U/L (45-117); Anion Gap 8 (5-15); BUN 19 mg/dL (7-18); BUN/Creat Ratio 18.4 RATIO (10-20); Calcium,Total 9.1 mg/dL (8.5-10.1); Chloride 103 mmol/L (98-107); Cholesterol 137 mg/dL (200); Creatinine, Serum 1.03 mg/dL (0.70-1.30); EST Glomerular Filtration Rate 76 mL/min (>60); Est Glom Filt Rate - Afr Amer 92 mL/min (>60); Globulin 4.2 g/dL (2.2-4.2); Glucose 125 mg/dL (74-106); High Density Lipoprotein 52 mg/dL; Potassium 4.2 mmol/L (3.5-5.1); Protein, Total 7.7 g/dL (6.4-8.2); Sodium Level 136 mmol/L (136-145); Triglycerides 122 mg/dL; Very Low Density Lipoprotein 24 mg/dL (5-40)
[2024-07-24 13:50] LABS: Hemoglobin A1c 5.9 % (3.8-5.6)
== END | disposition home or self-care (01) ==
LOC: MFPLAB 09:37
PROVIDERS: PCP Family Medicine; Visit Provider Family Medicine
DX: R73.02 Impaired glucose tolerance (oral) (principal); I10 Essential (primary) hypertension
CPT/HCPCS: 36415; 80053; 80061; 81001; 83036; 85025

== ENCOUNTER → 2024-09-09 | Outpatient (CLI) | payer MEDICARE, SELFPAY ==
[2024-09-09 15:17] LABS: Absolute Lymphocyte Count 2.81 X10^3/uL (0.83-4.51); Absolute Neutrophil Count 4.4 X10^3/uL (2.0-7.7); Basophil# 0.03 X10^3/uL; Basophil% 0.4 % (0-1); Eosinophil# 0.28 X10^3/uL; Eosinophils% 3.5 % (0-5); Hematocrit 43.3 % (40-54); Hemoglobin 14.3 g/dL (13.0-16.5); Lymphocyte # 2.81 X10^3/ul (0.83-4.51); Lymphocyte % 34.7 % (19-41); Mean Corpuscular Hgb 31.6 pg (27.0-32.0); Mean Corpuscular Volume 95.8 fL (80-94); Mean Platelet Vol. 13.7 fl (6.2-12.0); Monocyte% 7.4 % (0-10); NRBC Flagged by Analyzer 0 % (0-5); Neutrophil # 4.35 X10^3/uL (2.7-7.7); Neutrophil % 53.6 % (47-70); Platelet Count 113 K/mm3 (150-450); RBC Distribution Width CV 13.6 % (11.6-14.6); RBC Distribution Width SD 48.3 fl (35.1-43.9); Red Blood Count 4.52 M/mm3 (4.6-6.2); White Blood Count 8.1 K/mm3 (4.4-11.0)
[2024-09-09 15:23] LABS: AST(SGOT) 27 U/L (15-37); Alanine Aminotransfer ALT/SGPT 34 U/L (16-61)
== END | disposition home or self-care (01) ==
PROVIDERS: PCP Family Medicine; Referring Provider Dermatology; Visit Provider Dermatology
DX: L13.0 Dermatitis herpetiformis (principal); L57.0 Actinic keratosis; L82.0 Inflamed seborrheic keratosis; L53.8 Other specified erythematous conditions; L29.89 Other pruritus; Z79.899 Other long term (current) drug therapy
CPT/HCPCS: 36415; 84450; 84460; 85025

== ENCOUNTER → 2024-12-16 | Outpatient (CLI) | payer MEDICARE, SELFPAY ==
[2024-12-16 15:37] LABS: Absolute Lymphocyte Count 2.47 X10^3/uL (0.83-4.51); Absolute Neutrophil Count 4.1 X10^3/uL (2.0-7.7); Basophil# 0.03 X10^3/uL; Basophil% 0.4 % (0-1); Eosinophil# 0.31 X10^3/uL; Eosinophils% 4.1 % (0-5); Hematocrit 42.9 % (40-54); Hemoglobin 14.2 g/dL (13.0-16.5); Lymphocyte # 2.47 X10^3/ul (0.83-4.51); Lymphocyte % 32.3 % (19-41); Mean Corp Hgb Conc 33.1 g/dL (32-36); Mean Corpuscular Volume 96.6 fL (80-94); Mean Platelet Vol. 13.6 fl (6.2-12.0); Monocyte% 9.2 % (0-10); NRBC Flagged by Analyzer 0 % (0-5); Neutrophil # 4.13 X10^3/uL (2.7-7.7); Neutrophil % 53.9 % (47-70); Platelet Count 145 K/mm3 (150-450); RBC Distribution Width CV 13.8 % (11.6-14.6); RBC Distribution Width SD 48.4 fl (35.1-43.9); Red Blood Count 4.44 M/mm3 (4.6-6.2); White Blood Count 7.7 K/mm3 (4.4-11.0)
[2024-12-16 21:28] LABS: AST(SGOT) 32 U/L (<=37); Alanine Aminotransfer ALT/SGPT 36 U/L (<=46)
== END | disposition home or self-care (01) ==
PROVIDERS: PCP Family Medicine; Referring Provider Dermatology; Visit Provider Dermatology
DX: L13.0 Dermatitis herpetiformis (principal); Z79.899 Other long term (current) drug therapy; L57.0 Actinic keratosis; L80 Vitiligo; L53.8 Other specified erythematous conditions; L29.89 Other pruritus
CPT/HCPCS: 36415; 84450; 84460; 85025

== ENCOUNTER → 2024-12-30 | Outpatient (CLI) | payer MEDICARE, SELFPAY ==
[2024-12-30 13:40] LABS: Hemoglobin A1c 6.1 % (<=5.6)
[2024-12-30 14:00] LABS: Cholesterol 149 mg/dL (<=200); High Density Lipoprotein 44 mg/dL; Low Density Lipoprotein Calc. 72 mg/dL; Triglycerides 167 mg/dL; Very Low Density Lipoprotein 33 mg/dL (5-40); cholesterol:hdl ratio screen 3.39
== END | disposition home or self-care (01) ==
LOC: MTLAB 09:41
PROVIDERS: PCP Family Medicine
DX: Z13.1 Encounter for screening for diabetes mellitus (principal); Z13.220 Encounter for screening for lipoid disorders; Z12.5 Encounter for screening for malignant neoplasm of prostate
CPT/HCPCS: 36415; 80061; 83036; 84153; G0103

== ENCOUNTER → 2025-03-06 | Outpatient (CLI) | payer MEDICARE, SELFPAY ==
[2025-03-06 12:13] LABS: Absolute Lymphocyte Count 2.18 X10^3/uL (0.83-4.51); Absolute Neutrophil Count 4.4 X10^3/uL (2.0-7.7); Basophil# 0.04 X10^3/uL; Basophil% 0.5 % (0-1); Eosinophil# 0.25 X10^3/uL; Eosinophils% 3.4 % (0-5); Hematocrit 43.3 % (40-54); Hemoglobin 14.4 g/dL (13.0-16.5); Lymphocyte # 2.18 X10^3/ul (0.83-4.51); Lymphocyte % 29.4 % (19-41); Mean Corp Hgb Conc 33.3 g/dL (32-36); Mean Corpuscular Hgb 31.8 pg (27.0-32.0); Mean Corpuscular Volume 95.6 fL (80-94); Mean Platelet Vol. 13.8 fl (6.2-12.0); Monocyte# 0.55 X10^3/uL; Monocyte% 7.4 % (0-10); NRBC Flagged by Analyzer 0 % (0-5); Neutrophil # 4.37 X10^3/uL (2.7-7.7); Neutrophil % 58.9 % (47-70); Platelet Count 111 K/mm3 (150-450); RBC Distribution Width CV 13.4 % (11.6-14.6); Red Blood Count 4.53 M/mm3 (4.6-6.2); White Blood Count 7.4 K/mm3 (4.4-11.0)
[2025-03-06 12:53] LABS: AST(SGOT) 24 U/L (<=37); Alanine Aminotransfer ALT/SGPT 22 U/L (<=46)
== END | disposition home or self-care (01) ==
LOC: MTLAB 10:28
PROVIDERS: PCP Family Medicine; Referring Provider Dermatology; Visit Provider Dermatology
DX: L13.0 Dermatitis herpetiformis (principal); Z79.899 Other long term (current) drug therapy; L57.0 Actinic keratosis; L82.0 Inflamed seborrheic keratosis; L53.8 Other specified erythematous conditions; L29.89 Other pruritus
CPT/HCPCS: 36415; 84450; 84460; 85025

== ENCOUNTER → 2025-05-19 | Outpatient (CLI) | payer MEDICARE, SELFPAY ==
[2025-05-19 15:29] LABS: Hematocrit 44.6 % (40-54); Hemoglobin 14.7 g/dL (13.0-16.5); Immature Granulocytes Count 0.020 X10^3/uL (0.0-0.0); Mean Corp Hgb Conc 33.0 g/dL (32-36); Mean Corpuscular Volume 96.3 fL (80-94); Mean Platelet Vol. 14.0 fl (6.2-12.0); NRBC Flagged by Analyzer 0 % (0-5); Platelet Count 129 K/mm3 (150-450); RBC Distribution Width CV 13.2 % (11.6-14.6); RBC Distribution Width SD 47.0 fl (35.1-43.9); Red Blood Count 4.63 M/mm3 (4.6-6.2); White Blood Count 8.1 K/mm3 (4.4-11.0)
[2025-05-19 16:13] LABS: AST(SGOT) 35 U/L (<=37); Alanine Aminotransfer ALT/SGPT 42 U/L (<=46)
== END | disposition home or self-care (01) ==
LOC: MTLAB 11:28
PROVIDERS: PCP Family Medicine; Referring Provider Dermatology; Visit Provider Dermatology
DX: Z08 Encounter for follow-up examination after completed treatment for malignant neoplasm (principal); L13.0 Dermatitis herpetiformis; Z85.820 Personal history of malignant melanoma of skin; Z79.899 Other long term (current) drug therapy; L82.1 Other seborrheic keratosis; D18.01 Hemangioma of skin and subcutaneous tissue; Z71.89 Other specified counseling
CPT/HCPCS: 36415; 84450; 84460; 85025

== ENCOUNTER → 2025-07-31 | Outpatient (CLI) | payer MEDICARE, SELFPAY ==
[2025-07-31 10:05] LABS: Mucous, Urine 0 SEEN /hpf (<or=2+)
[2025-07-31 12:33] LABS: Color, Urine Yellow (Yellow); Glucose, Dipstick Normal (Normal); Ketone-Dipstick Negative (Negative); Leukocyte Esterase-Dipstick 25 /ul (Negative); Nitrite-Dipstick Negative (Negative); Occult Blood-Urine 10 /ul (Negative); Protein-Dipstick 15 mg/dl (Negative); Specific Gravity, Urine 1.015 (1.002-1.030); Urine Bilirubin Dipstick Negative (Negative)
[2025-07-31 12:35] LABS: Hematocrit 43.8 % (40-54); Hemoglobin 14.4 g/dL (13.0-16.5); Immature Granulocytes Count 0.020 X10^3/uL (0.0-0.0); Mean Corp Hgb Conc 32.9 g/dL (32-36); Mean Corpuscular Volume 97.1 fL (80-94); Mean Platelet Vol. 13.8 fl (6.2-12.0); NRBC Flagged by Analyzer 0 % (0-5); Platelet Count 128 K/mm3 (150-450); RBC Distribution Width CV 13.6 % (11.6-14.6); RBC Distribution Width SD 48.6 fl (35.1-43.9); Red Blood Count 4.51 M/mm3 (4.6-6.2); White Blood Count 8.3 K/mm3 (4.4-11.0)
[2025-07-31 12:41] LABS: Squamous Epithelial Cells - UA 0-5 SEEN /hpf (0-5)
[2025-07-31 12:42] LABS: Red Blood Cells-Urine 0-5 SEEN /hpf (0-5)
[2025-07-31 12:59] LABS: Cholesterol 133 mg/dL (<=200); Low Density Lipoprotein Calc. 65 mg/dL; Magnesium 2.0 mg/dL (1.5-2.2); Triglycerides 105 mg/dL; Very Low Density Lipoprotein 21 mg/dL (5-40); cholesterol:hdl ratio screen 2.84
[2025-07-31 13:05] LABS: AST(SGOT) 28 U/L (<=37); Alanine Aminotransfer ALT/SGPT 27 U/L (<=46); Albumin, Serum 3.8 g/dL (3.4-4.8); Alkaline Phosphatase 178 U/L (40-129); Anion Gap 9 (5-15); BUN 7 mg/dL (4-19); BUN/Creat Ratio 7.9 RATIO (10-20); Calcium,Total 9.3 mg/dL (7.6-11.0); Carbon Dioxide 26.8 mmol/L (21.0-32.0); Chloride 102 mmol/L (98-108); Globulin 3.4 g/dL (2.2-4.2); Glucose 117 mg/dL (70-99); Potassium 4.5 mmol/L (3.3-5.1)
[2025-08-03 07:07] LABS: GGTP 27 IU/L (0-65)
== END | disposition home or self-care (01) ==
LOC: MFPLAB 10:02
PROVIDERS: PCP Family Medicine; Visit Provider Family Medicine
DX: I10 Essential (primary) hypertension (principal); R74.8 Abnormal levels of other serum enzymes; R73.02 Impaired glucose tolerance (oral)
CPT/HCPCS: 80053; 80061; 81001; 82977; 83036; 83735; 85025

== ENCOUNTER → 2025-09-15 | Outpatient (CLI) | payer MEDICARE, SELFPAY ==
[2025-09-15 15:08] LABS: Hematocrit 44.2 % (40-54); Hemoglobin 14.5 g/dL (13.0-16.5); Immature Granulocytes Count 0.030 X10^3/uL (0.0-0.0); Mean Corp Hgb Conc 32.8 g/dL (32-36); Mean Corpuscular Volume 96.7 fL (80-94); Mean Platelet Vol. 13.6 fl (6.2-12.0); NRBC Flagged by Analyzer 0 % (0-5); Platelet Count 124 K/mm3 (150-450); RBC Distribution Width CV 13.3 % (11.6-14.6); RBC Distribution Width SD 47.4 fl (35.1-43.9); Red Blood Count 4.57 M/mm3 (4.6-6.2); White Blood Count 8.2 K/mm3 (4.4-11.0)
[2025-09-15 15:23] LABS: AST(SGOT) 31 U/L (<=37); Alanine Aminotransfer ALT/SGPT 28 U/L (<=46)
== END | disposition home or self-care (01) ==
LOC: MTLAB 11:42
PROVIDERS: PCP Family Medicine; Referring Provider Dermatology; Visit Provider Dermatology
DX: L13.0 Dermatitis herpetiformis (principal); Z79.899 Other long term (current) drug therapy; Z08 Encounter for follow-up examination after completed treatment for malignant neoplasm; Z85.820 Personal history of malignant melanoma of skin; D22.5 Melanocytic nevi of trunk; Z82.1 Family history of blindness and visual loss; D18.01 Hemangioma of skin and subcutaneous tissue; Z71.89 Other specified counseling
CPT/HCPCS: 36415; 84450; 84460; 85025